=== PATIENT | female | born 1970 | race Caucasian/White ===

== ENCOUNTER 2023-11-16 08:19 | Outpatient (AMB) | payer OTHER, SELFPAY ==
--- NOTE | 2023-11-16 08:18 | A.OFFPC_ITS ---
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 Intake Note: New patient visit Drawer In Stitch Bonding Machine Required: No Allergies No Known Allergies Allergy (Verified 11/16/23 08:18) Medication List - Last Reconciled 11/16/23 by Liz Manning MD albuterol sulfate 90 mcg/actuation 2 puffs inhalation Q6H PRN estradiol transdermal progesterone micronized mg PO Pulmicort Flexhaler 180 mcg/actuation (budesonide) 1 inh inhalation DAILY NS Tobacco use date assessed: 11/16/23 Dental Screening Dental Screen Date: 11/16/23 Did you have a dental visit in the last 12 months?: Yes Did you have a dental problem in the last 6 months where you did not have access to dental care?: No Was dental information given to patient?: Patient has dentist HPI HPI Comments History of Present Illness Details The patient is a 53 year old female with a past medical history of melanoma presenting for annual exam Follows with [facility]. Sees once a year. History of melanoma. History of hand surgery with Dr Estevez. Colonoscopy 03/2023 Mammo 10/2022 Td Feb 2021? [facility] Medical History (Updated 11/16/23 @ 09:40 by Liz Manning MD) H/O mammogram Obesity, Class I, BMI 30-34.9 History of melanoma Surgical History (Updated 11/16/23 @ 08:20 by Cristal Land CMA) H/O melanoma excision Family History (Updated 11/16/23 @ 08:49 by Cristal Land CMA) Father HTN (hypertension) Hypercholesteremia Cardiovascular disease Pancreatic cancer Paternal Grandfather HTN (hypertension) Hypercholesteremia Cardiovascular disease Other Clotting disorder Social History Housing: House Patient Tobacco Use Status: Former Tobacco user Cigarette Packs Per Day: 0.5 Years Smoked: 5 e-Cigarette/Vaping Use: Never Used service: No Current occupational status: employed 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 1. Little interest or pleasure in doing things: not at all 2. Feeling down, depressed, or hopeless: not at all 3. Trouble falling or staying asleep, or sleeping too much: not at all 4. Feeling tired or having little energy: not at all 5. Poor appetite or overeating: not at all 6. Feeling bad about yourself - or that you are a failure or have let yourself or your family down: not at all 7. Trouble concentrating on things, such as reading the newspaper or watching television: not at all 8. Moving or speaking so slowly that other people could have noticed. Or the op posite - being so fidgety or restless that you have been moving around a lot more than usual: not at all 9. Thoughts that you would be better off or of hurting yourself in some way: not at all Total score: 0 Depression Screening Interpretation: Negative Depression Screening Done: Yes 90472 - PHQ-9 Billing: Yes Source: Developed by Drs. Blayne Diaz, Berenice Somers, Carlton Ramos and colleagues, with an educational flako from [employer]. Thrive Questionnaire Date Thrive assessed: 11/16/23 I am a: Patient What is your living situation today?: I have a steady place to live Within the past 12 months, did the food you bought not last and you didn't have the money to get more?: Never true Within the past 12 months, did you worry whether your food would run out before you got money to buy more?: Never true Do you have trouble paying for medicines?: No Do you have trouble getting transportation to medical appointments?: No Do you have trouble paying your heating and electricity bill?: No Do you have trouble taking care of your child, family member or friend?: No Do you have trouble with day-to-day activities such as bathing, preparing meals, shopping, managing finances, etc.?: No Are you currently unemployed and looking for a job?: No Are you interested in more education?: No Please select the resources that you would like help with: None Currently or been in a relationship where the following occur: no concerns reported THRIVE Score: 0 AUDIT C Alcohol Use Questionnaire (AUDIT-C) 1. How often do you have a drink containing alcohol?: 2-4 times a month 2. How many drinks containing alcohol do you have on a typical day when you are drinking?: 1 or 2 3. How often do you have six or more drinks on one occasion?: Never Total Score: 2 SONG-7 AMB Questionnaire SONG-7 Date SONG - 7 assessed: 11/16/23 Feeling nervous, anxious, or on edge: 0 = Not at all Not being able to stop or control worryin = Not at all Worrying too much about different things: 0 = Not at all Trouble relaxin = Several days Being so restless that it is hard to sit still: 0 = Not at all Becoming easily annoyed or irritable: 0 = Not at all Feeling afraid as if something awful might happen: 0 = Not at all Total SONG-7 score (0-4 normal; 5-9 mild; 10-14 moderate; 15-21 severe): 1 Source: Developed by Drs. Blayne Diaz, Berenice Somers, Carlton Ramos and colleagues, with an educational flako from [employer]. SONG-7 Assessment Billing SONG-7 Assessment Tool: SONG-7 Assessment 16048 ACT Questionnaire In the past 4 weeks, how much of the time did your asthma keep you from getting as much done at work, school or at home?: None of the time During the past 4 weeks, how often have you had shortness of breath?: 1-2 times a week During the past 4 weeks, how often did your asthma symptoms wake you up at night or earlier than usual in the morning?: Not at all During the past 4 weeks, how often have you had to use your rescue inhaler or nebulizer medication?: Not at all How would you rate your asthma control during the past 4 weeks?: Somewhat controlled ACT Interpretation: Positive Score: 22 Physical exam (Primary Care) Vital Signs: Last Vital Signs Temp 97.7 F 11/16/23 08:26 Pulse 93 11/16/23 08:26 Resp 14 11/16/23 08:26 BP 134/80 11/16/23 08:43 Pulse Ox 99 11/16/23 08:26 BMI result Body Mass Index 33.7 Tobacco/Smoking Status: Tobacco use Status Tobacco use date assessed 11/16/23 11/16/23 08:21 Patient Tobacco Use Status Former Tobacco user 11/16/23 08:29 e-Cigarette/Vaping Use Never Used 11/16/23 08:29 PHQ-9: PHQ-9 Score PHQ-9: Total score 0 11/16/23 08:52 Depression Screening Interpretation: Negative Thrive Assessment: Date of Thrive Assessment Date Thrive assessed 11/16/23 11/16/23 08:52 Currently or been in a relationship where the following occur: no concerns reported Assessment and Plan Assessment & Plan (1) Physical exam: Code(s): Z00.00 - Encounter for general adult medical examination without abnormal findings Plan: The patient was seen today for preventive annual exam. As part of this exam we assessed/discussed Screening for tobacco use and provide tobacco cessation interventions for those who use tobacco products. Screening for alcohol misuse Screening for women of childbearing age for intimate partner violence, and those who screen positive should be provided with or referred to intervention services. Screening for depression Screening for cervical cancer with Pap tests beginning at 21 years of age. Screening for breast cancer Screening for colon cancer (2) Degenerative disc disease, cervical: Comment: Referral to physiatry. EMG. xray ordered Code(s): M50.30 - Other cervical disc degeneration, unspecified cervical region (3) Cervical radiculopathy: Code(s): M54.12 - Radiculopathy, cervical region (4) History of melanoma: Comment: Continues annual follow up with dermatology Code(s): Z85.820 - Personal history of malignant melanoma of skin (5) Hand numbness: Code(s): R20.0 - Anesthesia of skin (6) Hyperlipidemia: Code(s): E78.5 - Hyperlipidemia, unspecified Qualifiers: Hyperlipidemia type: familial hypercholesterolemia Qualified Code(s): E78.01 - Familial hypercholesterolemia Orders: Orders Comprehensive Met. Panel Today E78.5 - Hyperlipidemia, unspecified, R20.0 - Anesthesia of skin, Z85.820 - Personal history of malignant melanoma of skin TSH reflex Free T4 Today E78.5 - Hyperlipidemia, unspecified, R20.0 - Anesthesia of skin, Z85.820 - Personal history of malignant melanoma of skin XR cervical spine 2V Today M50.30 - Other cervical disc degeneration, unspecified cervical region, M54.12 - Radiculopathy, cervical region NE electromyogram (EMG) Today M50.30 - Other cervical disc degeneration, unspecified cervical region, M54.12 - Radiculopathy, cervical region Complete Blood Count Auto Diff Today E78.5 - Hyperlipidemia, unspecified, R20.0 - Anesthesia of skin, Z13.0 - Encounter for screening for diseases of the blood and blood-forming organs and certain disorders involving the immune mechanism, Z85.820 - Personal history of malignant melanoma of skin Lipid Panel Today E78.5 - Hyperlipidemia, unspecified, R20.0 - Anesthesia of skin, Z85.820 - Personal history of malignant melanoma of skin ABO RH Type Today E78.5 - Hyperlipidemia, unspecified, R20.0 - Anesthesia of skin, Z85.820 - Personal history of malignant melanoma of skin Hemoglobin A1c Today E78.5 - Hyperlipidemia, unspecified, R20.0 - Anesthesia of skin, Z85.820 - Personal history of malignant melanoma of skin Referrals Physiatry Referral M50.30 - Other cervical disc degeneration, unspecified cervical region, M54.12 - Radiculopathy, cervical region, R20.0 - Anesthesia of skin Medications: New Pulmicort Flexhaler 180 mcg/actuation (budesonide) 1 inh inhalation DAILY 1 ea 1RF NS albuterol sulfate 90 mcg/actuation 2 puffs inhalation Q6H PRN 8.5 grams 1RF shortness of breath or wheezing Coding Level of Care Code New Pt Prev Care 40-64y(08844) Diagnoses Physical exam Z00.00 Degenerative disc disease, cervical M50.30 Cervical radiculopathy M54.12 History of melanoma Z85.820 Hand numbness R20.0 Familial hypercholesterolemia E78.01 Hyperlipidemia type: familial hypercholesterolemia Additional Codes SONG-7 Assessment Billing - SONG-7 Assessment Tool: SONG-7 Assessment [id number] ([id number])
[2023-11-16 08:26] VITALS: BP 144/82; PULSE 93; RESP 14; TEMP 36.5; O2SAT 99; BMI 33.7
[2023-11-16 08:43] VITALS: BP 134/80
== END 2023-11-16 09:16 | disposition home or self-care (01) ==
PROVIDERS: Visit Provider Internal Medicine
DX: Z00.00 Encounter for general adult medical examination without abnormal findings (principal); M50.30 Other cervical disc degeneration, unspecified cervical region; M54.12 Radiculopathy, cervical region; Z85.820 Personal history of malignant melanoma of skin; R20.0 Anesthesia of skin; E78.01 Familial hypercholesterolemia
CPT/HCPCS: 99386

== ENCOUNTER 2023-11-16 09:18 | Outpatient (REF) | payer OTHER, SELFPAY ==
[2023-11-16 11:27] LABS: MANUAL DIFF FLAG NO
[2023-11-16 11:37] LABS: Basophils Absolute Auto 0.1 X10*3/uL (0.0-0.2); Basophils Percent Auto 0.8 % (0-2); Eosinophils Absolute Auto 0.2 X10*3/uL (0.0-0.4); Eosinophils Percent Auto 2.8 % (0-4); Hematocrit 42.6 % (37.0-47.0); Hemoglobin 14.2 g/dl (12.0-16.0); Imm Gran Abs Auto 0.02 X10*3/uL (0.00-0.03); Imm Gran Pct Auto 0.3 % (0.0-0.4); Lymphocytes Percent Auto 30.5 % (20-40); Mean Corpuscular HGB Conc 33.3 g/dl (31.0-35.0); Mean Corpuscular Hemoglobin 32.3 pg (27.0-33.0); Mean Platelet Volume 11.7 fL (9.4-12.3); Monocytes Absolute Auto 0.4 X10*3/uL (0.1-1.2); Monocytes Percent Auto 6.5 % (2-11); Neutrophils Absolute Auto 3.8 x10*3/uL (2.0-8.3); Neutrophils Percent Auto 59.1 % (45-73); Platelet Count 305 X10*3/uL (160-400); Red Blood Count 4.39 X10*6/uL (4.20-5.50); Red Cell Distribution Width 12.5 % (11.0-16.0); White Blood Count 6.5 X10*3/uL (4.8-10.8)
[2023-11-16 11:45] LABS: Estimated Average Glucose 108 mg/dL; Hemoglobin A1c % 5.4 % (<6.0)
[2023-11-16 11:57] LABS: Alanine Aminotransferase 28 U/L (0-31); Albumin Level 4.3 g/dL (3.5-5.0); Alkaline Phosphatase 106 U/L (39-117); Anion Gap 12 (12-20); Aspartate Amino Transferase 25 U/L (5-31); Bilirubin Total 0.7 mg/dL (0.0-1.0); Blood Urea Nitrogen 13 mg/dL (9-16); Calcium 9.4 mg/dL (8.4-10.2); Carbon Dioxide 28 mmol/L (22-29); Chloride 106 mmol/L (96-108); Cholesterol 228 mg/dL (<200); Estimated Glomerular Filt Rate > 60; Glucose Random 112 mg/dL (60-115); HDL Cholesterol 89 mg/dL (>40); LDL Cholesterol Calculated 123 mg/dL (<100); Potassium 4.1 mmol/L (3.3-5.1); Sodium 142 mmol/L (135-145); Total Protein 7.4 g/dL (6.5-8.0); Triglycerides 84 mg/dL (<150)
[2023-11-16 12:15] LABS: TSH reflex Free T4 2.47 uIU/mL (0.32-4.0)
== END 2023-11-16 09:19 | disposition home or self-care (01) ==
LOC: HO.WFDLDS 09:18
PROVIDERS: Visit Provider Internal Medicine
DX: Z13.0 Encounter for screening for diseases of the blood and blood-forming organs and certain disorders involving the immune mechanism (principal); R20.0 Anesthesia of skin; E78.5 Hyperlipidemia, unspecified; Z85.820 Personal history of malignant melanoma of skin
CPT/HCPCS: 36415; 80053; 80061; 83036; 84443; 85025; 86900; 86901

== ENCOUNTER 2023-11-21 15:44 | Outpatient (REF) | payer OTHER, SELFPAY ==
--- NOTE | ~2023-11-21 | XR_ITS ---
EXAMINATION: XR CERVICAL SPINE CLINICAL INFORMATION: Cervical disc degeneration, numbness, tingling right hand, neck pain and stiffness. COMPARISON: None available. TECHNIQUE: 2 views of the cervical spine. FINDINGS: Slight reversal of the normal cervical lordosis. Degenerative changes between the anterior arch of C1 and the odontoid. Minimal retrolisthesis of C4 on C5, and of C5 on C6. Multilevel cervical spondylosis with loss of disc space height at moderate at C4-C5, [id number] at C5-C6 and [id number] at C6-C7. Poor visualization of C6-C7 due to overlying soft tissues. Clip overlies the anterior aspect of the lower cervical spine on the lateral view, but is not imaged on the frontal view and correlation with clinical exam recommended to determine further management. XR/XR cervical spine 2V IMPRESSION: Multilevel cervical spondylosis most notable at C4-C7.
== END 2023-11-21 15:45 | disposition home or self-care (01) ==
LOC: HO.XRAY 15:44
PROVIDERS: PCP Internal Medicine; Visit Provider Internal Medicine
DX: M50.30 Other cervical disc degeneration, unspecified cervical region (principal); M54.12 Radiculopathy, cervical region
CPT/HCPCS: 72040

== ENCOUNTER 2023-11-29 13:56 | Outpatient (REF) | payer OTHER, SELFPAY ==
--- NOTE | 2023-11-29 | EMG_ITS ---
Chief complaint: Noticed right arm numbness when she bends forward. Has also nighttime symptoms. Reason for referral: Evaluate for cervical radiculopathy Referred by: Dr. Liz Manning Procedure done: Right upper extremity NCS/EMG Precautions and/or limitations: None The limb temperature was monitored continuously and remained between 32-36 degrees C during the performance of the NCS. Nerve Conduction Studies Anti Sensory Summary Table ?Stim Site NR Onset (ms) Norm Onset (ms) Peak (ms) Norm Peak (ms) O-P Amp (?V) Norm O-P Amp Site1 Site2 Delta-0 (ms) Dist (cm) Naveed (m/s) Norm Naveed (m/s) Right Median Anti Sensory (2nd Digit) Wrist ? 2.4 3.3 <3.6 54.9 >10 Wrist 2nd Digit 2.4 14.0 58 Right Radial Anti Sensory (Thumb) Forearm ? 1.5 2.0 <3.1 35.0 Forearm Thumb 1.5 0.0 Right Ulnar Anti Sensory (5th Digit) Wrist ? 2.3 3.2 <3.7 58.1 >15.0 Wrist 5th Digit 2.3 14.0 61 Motor Summary Table ?Stim Site NR Onset (ms) Norm Onset (ms) O-P Amp (mV) Norm O-P Amp iAmp (mV) Amp (1st) (%) Site1 Site2 Delta-0 (ms) Dist (cm) Naveed (m/s) Norm Naveed (m/s) Right Median Motor (Abd Poll Brev) Wrist ? 3.1 <3.9 10.5 >4.5 12.8 100.0 Elbow Wrist 3.6 18.5 51 >45 Elbow ? 6.7 9.4 12.0 89.5 Right Ulnar Motor (Abd Dig Minimi) Wrist ? 2.7 <3.0 8.5 >5 10.5 100.0 B Elbow Wrist 2.9 18.0 62 >45 B Elbow ? 5.6 8.7 10.7 102.4 A Elbow B Elbow 1.5 10.0 67 >45 A Elbow ? 7.1 8.6 10.6 101.2 EMG ?Side Muscle Nerve Root Ins Act Fibs Psw Amp Dur Poly Recrt Int Pat Comment Right 1stDorInt Ulnar C8-T1 Nml Nml Nml Nml Nml 0 Nml Complete Right FlexCarRad Median C6-7 Nml Nml Nml Nml Nml 0 Nml Complete Right Biceps Musculocut C5-6 Nml Nml Nml Nml Nml 0 Nml Complete Right Triceps Radial C6-7-8 Nml Nml Nml Nml Nml 0 Nml Complete Right Deltoid Axillary C5-6 Nml Nml Nml Nml Nml 0 Nml Complete FINDINGS: All motor and sensory nerves tested showed normal latencies, amplitudes and conduction velocities. Concentric needle EMG was performed in selected muscles of the right upper extremity. Study did not reveal signs of electric abnormalities as shown in the table below. IMPRESSION: 1. This is a normal study. 2. There is no electrodiagnostic evidence for median neuropathy, ulnar neuropathy, brachial plexopathy, or cervical radiculopathy. Thank you for your kind referral. Magnolia Brooke MD, CARLI Board Certified, [place] [employer] and Rehabilitation (ABPMR) Board Certified, [place] Board [employer] Electrodiagnostic [employer] (ABEM) [place] [id number] [facility]
== END 2023-11-29 13:57 | disposition home or self-care (01) ==
LOC: HO.NEURO 13:56
PROVIDERS: PCP Internal Medicine; Visit Provider Internal Medicine
DX: M54.12 Radiculopathy, cervical region (principal); M50.30 Other cervical disc degeneration, unspecified cervical region
CPT/HCPCS: 95886; 95909

== ENCOUNTER → 2023-11-29 13:58 | Outpatient (BNV) | payer OTHER, SELFPAY | PROVIDERS: PCP Internal Medicine; Visit Provider Physical Medicine & Rehabilitation | DX: R20.2 Paresthesia of skin (principal); M54.12 Radiculopathy, cervical region | CPT/HCPCS: 95886; 95909 ==

== ENCOUNTER 2024-01-09 10:49 | Outpatient (AMB) | payer OTHER, SELFPAY ==
--- NOTE | 2024-01-09 10:53 | A.OFFVIS_ITS ---
Intake Visit Reasons: OV- EMG f/u right hand, neck pain Intake Note: Tessie is a 53 year old female who presents to the office today for EMG f/u right hand, neck pain. EMG done 11/29/23. Patient states that she has had ongoing neck pain and pain radiating down the right arm for about 3 years now. Denies any injury. She has had a few months of formal physical therapy, and continues home therapy. The whole arm goes numb with pins and needle when bending forward which resolves when standing back up. Allergies No Known Allergies Allergy (Verified 11/16/23 08:18) HPI Comments Details: I saw the patient for EMG, ordered by her PCP Dr. Manning. EMG was negative for Carpal Tunnel Syndrome or any acute radiculopathy. Report below. She's been having right sided neck pain and arm pain for at least 3 years. Pain comes from shoulder and upper arm. Worse with looking down or bending forward. Whole arm would get numb when she bends forward. Good shoulder ROM and no weakness. MRI 3 years ago, at [facility], told disc compression. Symptoms worse since then. [facility] Medical History (Updated 11/16/23 @ 09:40 by Liz Manning MD) H/O mammogram Obesity, Class I, BMI 30-34.9 History of melanoma Surgical History (Updated 11/16/23 @ 08:20 by Cristal Land CMA) H/O melanoma excision Family History (Updated 11/16/23 @ 08:49 by Cristal Land CMA) Father HTN (hypertension) Hypercholesteremia Cardiovascular disease Pancreatic cancer Paternal Grandfather HTN (hypertension) Hypercholesteremia Cardiovascular disease Other Clotting disorder Social History Housing: House Patient Tobacco Use Status: Former Tobacco user Cigarette Packs Per Day: 0.5 Years Smoked: 5 e-Cigarette/Vaping Use: Never Used service: No Current occupational status: employed 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 Patient was appropriately conversant and oriented. Good historian. MSK: Inspection reveals appropriate head and neck positioning. No pain with palpation over the neck musculature. Cervical ROM was full. Spurling's sign positive cross findings, left Spurling sign caused radiation to right arm. No scapular winging. Bilateral shoulder, elbow and wrist ROM WNL. No ligamentous laxity or crepitance. No increased effusion. Victor sign negative. Empty can sign negative. Speed's test negative. Negative carpal compression. Negative Tinel sign. Strength is 5/5 in all muscle groups tested. No increased tone noted. Neurological: Neurologic examination of the upper and lower extremities was nonfocal with intact sensation, muscle stretch reflexes and without focal motor deficits . Jackson?s negative bilaterally. Babinski was down going bilaterally. Clonus was negative. Gait is non-antalgic without loss of balance. Results Reviewed Results Reviewed: I independently reviewed the results of the following: Loss of lordosis and question disc space loss on cervical spine x-ray. Showed films to patient. Ordering Physician: Liz Manning MD Date of Service: 11/21/23 Procedure(s): XR cervical spine 2V Accession Number(s): [id number] cc: Liz Manning MD~ EXAMINATION: XR CERVICAL SPINE CLINICAL INFORMATION: Cervical disc degeneration, numbness, tingling right hand, neck pain and stiffness. COMPARISON: None available. TECHNIQUE: 2 views of the cervical spine. FINDINGS: Slight reversal of the normal cervical lordosis. Degenerative changes between the anterior arch of C1 and the odontoid. Minimal retrolisthesis of C4 on C5, and of C5 on C6. Multilevel cervical spondylosis with loss of disc space height at moderate at C4-C5, iplzauql-qb-paqiau at C5-C6 and xkltqmdm-et-fhcnyy at C6-C7. Poor visualization of C6-C7 due to overlying soft tissues. Clip overlies the anterior aspect of the lower cervical spine on the lateral view, but is not imaged on the frontal view and correlation with clinical exam recommended to determine further management. XR/XR cervical spine 2V IMPRESSION: Multilevel cervical spondylosis most notable at C4-C7. EMG done by me 11/29/23 IMPRESSION: 1. This is a normal study. 2. There is no electrodiagnostic evidence for median neuropathy, ulnar neuropathy, brachial plexopathy, or cervical radiculopathy. I reviewed records from the following: PCP Assessment & Plan Assessment & Plan (1) Degenerative disc disease, cervical: Comment: Referral to physiatry. EMG. xray ordered Code(s): M50.30 - Other cervical disc degeneration, unspecified cervical region Category: Medical (2) Cervical radiculopathy: Code(s): M54.12 - Radiculopathy, cervical region Category: Medical Plan Symptoms and exam are suggestive of cervical radiculitis. No signs of ongoing myelopathy. No neurological findings. She has been told in the past have ce rvical disc herniation, cervical x-ray shows loss of disc spaces, and her symptoms have been worsening for the last 3 years. Patient had undergone adequate conservative management including PT without improvement of condition. It would be reasonable to obtain further imaging such as MRI. An MRI would help rule out any serious condition, guide treatment and assess prognosis for recovery. Specifically ruling out right C5-6 disc herniation, foraminal now narrowing or nerve impingement. We discussed that depending on results, I may refer her to pain management for cervical intervention/injections or refer to neuro spine. Assessment and plan discussed with patient, and patient was agreeable. All questions were answered thoroughly. We will call patient after MRI. Magnolia Brooke MD, CARLI Board Certified, [place] [employer] and Rehabilitation (ABPMR) Board Certified, [place] [employer] Electro[employer]ostic [employer] (ABEM) Orders: Orders MR cervical spine wo con Today M50.30 - Other cervical disc degeneration, unspecified cervical region, M54.12 - Radiculopathy, cervical region Coding Level of Care Code Est Pt Level 4 (11309) Diagnoses Degenerative disc disease, cervical M50.30 Cervical radiculopathy M54.12
== END 2024-01-09 11:10 | disposition home or self-care (01) ==
PROVIDERS: PCP Internal Medicine; Visit Provider Physical Medicine & Rehabilitation
DX: M50.30 Other cervical disc degeneration, unspecified cervical region (principal); M54.12 Radiculopathy, cervical region
CPT/HCPCS: 99213

== ENCOUNTER → 2024-01-09 10:49 | Outpatient (BNVA) | payer OTHER, SELFPAY | PROVIDERS: PCP Internal Medicine; Visit Provider Physical Medicine & Rehabilitation ==

== ENCOUNTER 2024-03-10 07:15 | Outpatient (REF) | payer OTHER, SELFPAY ==
--- NOTE | ~2024-03-10 | MR_ITS ---
EXAMINATION: MR CERVICAL SPINE WITHOUT CONTRAST CLINICAL INFORMATION: Evaluate for right C5-6 foraminal stenosis or disc herniation COMPARISON: None available. TECHNIQUE: MRI of the cervical spine was obtained using routine sequences without contrast. FINDINGS: The imaged posterior fossa is unremarkable. Reversal of the normal cervical lordosis. Mild retrolisthesis at C4-5 and C5-6. Grade 1 anterolisthesis at C2-3 and C3-4. No acute bone marrow abnormality. Mildly heterogeneous bone marrow signal is likely degenerative. The visualized spinal cord is normal in caliber. No abnormal cord signal. C2-3: Bilateral facet arthrosis. No significant spinal canal nor foraminal narrowing. C3-4: Disc osteophyte complex, bilateral uncovertebral hypertrophy, and bilateral facet arthrosis. No significant spinal canal stenosis. Moderate left and mild right neural foraminal narrowing. C4-5: Disc osteophyte complex, bilateral uncovertebral hypertrophy, and bilateral facet arthrosis. Severe right and moderate to severe left neural foraminal narrowing. No central spinal canal stenosis. C5-6: Disc osteophyte complex, bilateral uncovertebral hypertrophy, and bilateral facet arthrosis. Moderate to severe right and mild left neural foraminal narrowing. No significant spinal canal or neural foraminal narrowing. C6-7: Disc osteophyte complex and bilateral uncovertebral hypertrophy. Severe right and moderate left neural foraminal narrowing. No significant spinal canal stenosis. C7-T1: No significant spinal canal or neural foraminal narrowing. The paravertebral soft tissues are unremarkable. The imaged lung apices are clear. MR/MR cervical spine wo con IMPRESSION: Multilevel degenerative changes of the cervical spine without significant spinal canal stenosis. Neural foraminal narrowing is worst and severe on the right at C4-C5 and C6-C7. Electronically signed by: Raúl Jones MD 04/11/2024 06:07 PM EDT
== END 2024-03-10 07:16 | disposition home or self-care (01) ==
LOC: HO.MRI 07:15
PROVIDERS: PCP Internal Medicine; Visit Provider Physical Medicine & Rehabilitation
DX: M54.12 Radiculopathy, cervical region (principal); M50.30 Other cervical disc degeneration, unspecified cervical region
CPT/HCPCS: 72141

== ENCOUNTER 2024-03-14 13:51 | Outpatient (AMB) | payer OTHER, SELFPAY ==
--- NOTE | 2024-03-14 14:04 | MHC.PC.OV ---
Vital Signs 03/14/24 14:05 BP 140/70 H Blood Pressure Location Rt brachial Position Sitting Respiration 12 Pulse 78 Pulse Source Pulse Oximeter Pulse Oximetry (%) 98 Oxygen Delivery Method Room Air Intake Visit Reasons: R foot pain Intake Note: Patient reports she was running through a trail and she felt sharp pain in her heal, patient states she kept running and the pain worsened by radiating through the side of her foot. Patient reports this was 3 weeks ago. 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 She was running through a trail and she felt sharp pain in her heal, patient states she kept running and the pain worsened by radiating through the medial side of her right foot at the edge of the heel. She has been trying to ice and stretch and elevate when possible Follows with [facility]. Sees once a year. History of melanoma. History of hand surgery with Dr Estevez. Colonoscopy 03/2023 Mammo 10/2022 Td Feb 2021? Dr Bar ROS see HPI PHYSICAL EXAM: GENERAL: Alert and oriented x 3. NAD EYES: EOMI. Anicteric. HENT: Moist mucous membranes. No scleral icterus. No cervical lymphadenopathy. LUNGS: Clear to auscultation bilaterally. CARDIOVASCULAR: Regular rate and rhythm. No murmur. No JVD. ABDOMEN: Soft, non-tender +bs EXTREMITIES: Tenderness to palptation without swelling or warmth at at the medial base of the calcaneus/ SKIN: No rashes or lesions. Warm. NEUROLOGIC: No focal neurological deficits. CN II-XII grossly intact PSYCHIATRIC: Cooperative. Appropriate mood and affect [facility] Medical History (Updated 03/14/24 @ 14:53 by Liz Manning MD) H/O mammogram Obesity, Class I, BMI 30-34.9 History of melanoma Surgical History (Updated 11/16/23 @ 08:20 by Cristal Ladn CMA) H/O melanoma excision Family History (Updated 11/16/23 @ 08:49 by Cristal Land CMA) Father HTN (hypertension) Hypercholesteremia Cardiovascular disease Pancreatic cancer Paternal Grandfather HTN (hypertension) Hypercholesteremia Cardiovascular disease Other Clotting disorder Social History Housing: House Patient Tobacco Use Status: Former Tobacco user Cigarette Packs Per Day: 0.5 Years Smoked: 5 e-Cigarette/Vaping Use: Never Used service: No Current occupational status: employed 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 1. Little interest or pleasure in doing things: not at all 2. Feeling down, depressed, or hopeless: not at all 3. Trouble falling or staying asleep, or sleeping too much: not at all 4. Feeling tired or having little energy: not at all 5. Poor appetite or overeating: not at all 6. Feeling bad about yourself - or that you are a failure or have let yourself or your family down: not at all 7. Trouble concentrating on things, such as reading the newspaper or watching television: not at all 8. Moving or speaking so slowly that other people could have noticed. Or the opposite - being so fidgety or restless that you have been moving around a lot more than usual: not at all 9. Thoughts that you would be better off or of hurting yourself in some way: not at all Total score: 0 Depression Screening Interpretation: Negative Depression Screening Done: Yes 34229 - PHQ-9 Billing: Yes Source: Developed by Drs. Blayne Diaz, Berenice Somers, Carlton Ramos and colleagues, with an educational flako from [employer]. Thrive Questionnaire Date Thrive assessed: 03/12/24 I am a: Patient What is your living situation today?: I have a steady place to live Within the past 12 months, did the food you bought not last and you didn't have the money to get more?: Never true Within the past 12 months, did you worry whether your food would run out before you got money to buy more?: Never true Do you have trouble paying for medicines?: No Do you have trouble getting transportation to medical appointments?: No Do you have trouble paying your heating and electricity bill?: No Do you have trouble taking care of your child, family member or friend?: No Do you have trouble with day-to-day activities such as bathing, preparing meals, shopping, managing finances, etc.?: No Are you currently unemployed and looking for a job?: No Are you interested in more education?: No Please select the resources that you would like help with: None Currently or been in a relationship where the following occur: No concerns reported THRIVE Score: 0 AUDIT C Alcohol Use Questionnaire (AUDIT-C) 1. How often do you have a drink containing alcohol?: Monthly or less 2. How many drinks containing alcohol do you have on a typical day when you are drinking?: 1 or 2 3. How often do you have six or more drinks on one occasion?: Never Total Score: 1 SONG-7 AMB Questionnaire SONG-7 Date SONG - 7 assessed: 03/14/24 Feeling nervous, anxious, or on edge: 0 = Not at all Not being able to stop or control worryin = Not at all Worrying too much about different things: 0 = Not at all Trouble relaxin = Not at all Being so restless that it is hard to sit still: 0 = Not at all Becoming easily annoyed or irritable: 0 = Not at all Feeling afraid as if something awful might happen: 0 = Not at all Total SONG-7 score (0-4 normal; 5-9 mild; 10-14 moderate; 15-21 severe): 0 Source: Developed by Drs. Blayne Diaz, Berenice Somers, Carlton Ramos and colleagues, with an educational flako from [employer]. SONG-7 Assessment Billing SONG-7 Assessment Tool: SONG-7 Assessment 89942 Physical exam (Primary Care) Vital Signs: Last Vital Signs Pulse 78 03/14/24 14:05 Resp 12 03/14/24 14:05 BP 140/70 H 03/14/24 14:05 Pulse Ox 98 03/14/24 14:05 Oxygen Delivery Method Room Air 03/14/24 14:05 Tobacco/Smoking Status: Tobacco use Status Tobacco use date assessed 11/16/23 03/14/24 14:05 Patient Tobacco Use Status Former Tobacco user 03/14/24 14:05 e-Cigarette/Vaping Use Never Used 03/14/24 14:05 PHQ-9: PHQ-9 Score PHQ-9: Total score 0 03/18/24 12:47 Depression Screening Interpretation: Negative Thrive Assessment: Date of Thrive Assessment Date Thrive assessed 03/12/24 03/14/24 14:05 Currently or been in a relationship where the following occur: No concerns reported Assessment and Plan Assessment & Plan (1) Right foot pain: Code(s): M79.671 - Pain in right foot Plan: Referal to ortho-foot prednisone and topicals ordered. Advised to ice, tape and elevate when possible Orders: Referrals Orthopedics Referral M79.671 - Pain in right foot Medications: New prednisone 40 mg (2 x 20 mg) PO DAILY 10 tabs 0RF 5 days lidocaine-prilocaine 2.5-2.5 % 1 appl topical ONCE 30 grams 0RF diclofenac sodium 1% (Arthritis Pain (diclofenac)) apply to single knee, ankle, foot; for foot includes sole/toes/top of foot 4 grams topical QID 100 grams 0RF Coding Level of Care Code Est Pt Level 4 (48160) Diagnoses Right foot pain M79.671 Additional Codes SONG-7 Assessment Billing - SONG-7 Assessment Tool: SONG-7 Assessment 12259 ([id number])
[2024-03-14 14:05] VITALS: BP 140/70; PULSE 78; RESP 12; O2SAT 98
== END 2024-03-14 16:24 | disposition home or self-care (01) ==
PROVIDERS: PCP Internal Medicine; Visit Provider Internal Medicine
DX: M79.671 Pain in right foot (principal)

== ENCOUNTER → 2024-03-14 13:51 | Outpatient (BNVA) | payer OTHER, SELFPAY | PROVIDERS: PCP Internal Medicine; Visit Provider Internal Medicine | DX: M79.671 Pain in right foot (principal) | CPT/HCPCS: 96127 ==

== ENCOUNTER 2024-05-08 09:02 | Outpatient (AMB) | payer OTHER, SELFPAY ==
--- NOTE | 2024-05-08 09:31 | A.OFFVIS_ITS ---
Vital Signs 05/08/24 09:32 Height 5 ft 3.03 in Weight 190 lb 8 oz BMI 33.7 Intake Visit Reasons: MRI review of cervical spine Intake Note: Tessie is a 54 year old female who presents today for an MRI review of her cervical spine. MRI done on 03/10/2024. Allergies No Known Allergies Allergy (Verified 05/08/24 09:33) HPI Comments Details: I saw the patient for EMG, ordered by her PCP Dr. Manning. EMG was negative for Carpal Tunnel Syndrome or any acute radiculopathy. Report below. She's been having right sided neck pain and arm pain for at least 3 years. Pain comes from shoulder and upper arm. Worse with looking down or bending forward. Whole arm would get numb when she bends forward. Good shoulder ROM and no weakness. MRI 3 years ago, at [facility], told disc compression. Symptoms worse since then. Last formal PT 3 years ago, but has been doing the exercises taught by PT. We repeated MRI, here to discuss. Nothing new since last visit. Same symptoms. She confirms that most of her pain is right-sided with numbness on right hand/arm. [facility] Medical History (Updated 05/08/24 @ 09:57 by Magnolia Brooke MD) H/O mammogram Obesity, Class I, BMI 30-34.9 History of melanoma Surgical History (Updated 11/16/23 @ 08:20 by Cristal Land CMA) H/O melanoma excision Family History (Updated 11/16/23 @ 08:49 by Cristal Land CMA) Father HTN (hypertension) Hypercholesteremia Cardiovascular disease Pancreatic cancer Paternal Grandfather HTN (hypertension) Hypercholesteremia Cardiovascular disease Other Clotting disorder Social History Housing: House Patient Tobacco Use Status: Former Tobacco user Cigarette Packs Per Day: 0.5 Years Smoked: 5 e-Cigarette/Vaping Use: Never Used service: No Current occupational status: employed 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 Patient was appropriately conversant and oriented. Good historian. MSK: Inspection reveals appropriate head and neck positioning. Cervical ROM was full. Spurling's sign positive cross findings, left Spurling sign caused radiation to right arm. No scapular winging. Strength is 5/5 in all muscle groups tested. No increased tone noted. Neurological: Neurologic examination of the upper and lower extremities was nonfocal with intact sensation, muscle stretch reflexes and without focal motor deficits . Jackson?s negative bilaterally. Babinski was down going bilaterally. Clonus was negative. Gait is non-antalgic without loss of balance. Results Reviewed Results Reviewed: Ordering Physician: Magnolia Medley Date of Service: 03/10/24 Procedure(s): MR cervical spine wo con Accession Number(s): [id number] cc: Liz Manning MD; Magnolia Medley~ EXAMINATION: MR CERVICAL SPINE WITHOUT CONTRAST CLINICAL INFORMATION: Evaluate for right C5-6 foraminal stenosis or disc herniation COMPARISON: None available. TECHNIQUE: MRI of the cervical spine was obtained using routine sequences without contrast. FINDINGS: The imaged posterior fossa is unremarkable. Reversal of the normal cervical lordosis. Mild retrolisthesis at C4-5 and C5-6. Grade 1 anterolisthesis at C2-3 and C3-4. No acute bone marrow abnormality. Mildly heterogeneous bone marrow signal is likely degenerative. The visualized spinal cord is normal in caliber. No abnormal cord signal. C2-3: Bilateral facet arthrosis. No significant spinal canal nor foraminal narrowing. C3-4: Disc osteophyte complex, bilateral uncovertebral hypertrophy, and bilateral facet arthrosis. No significant spinal canal stenosis. Moderate left and mild right neural foraminal narrowing. C4-5: Disc osteophyte complex, bilateral uncovertebral hypertrophy, and bilateral facet arthrosis. Severe right and moderate to severe left neural foraminal narrowing. No central spinal canal stenosis. C5-6: Disc osteophyte complex, bilateral uncovertebral hypertrophy, and bilateral facet arthrosis. Moderate to severe right and mild left neural foraminal narrowing. No significant spinal canal or neural foraminal narrowing. C6-7: Disc osteophyte complex and bilateral uncovertebral hypertrophy. Severe right and moderate left neural foraminal narrowing. No significant spinal canal stenosis. C7-T1: No significant spinal canal or neural foraminal narrowing. The paravertebral soft tissues are unremarkable. The imaged lung apices are clear. MR/MR cervical spine wo con IMPRESSION: Multilevel degenerative changes of the cervical spine without significant spinal canal stenosis. Neural foraminal narrowing is worst and severe on the right at C4-C5 and C6-C7. Electronically signed by: Raúl Jones MD 04/11/2024 06:07 PM EDT RP Ordering Physician: Liz Manning MD Date of Service: 11/21/23 Procedure(s): XR cervical spine 2V Accession Number(s): [id number] cc: Liz Manning MD~ EXAMINATION: XR CERVICAL SPINE CLINICAL INFORMATION: Cervical disc degeneration, numbness, tingling right hand, neck pain and stiffness. COMPARISON: None available. TECHNIQUE: 2 views of the cervical spine. FINDINGS: Slight reversal of the normal cervical lordosis. Degenerative changes between the anterior arch of C1 and the odontoid. Minimal retrolisthesis of C4 on C5, and of C5 on C6. Multilevel cervical spondylosis with loss of disc space height at moderate at C4-C5, [id number] at C5-C6 and [id number] at C6-C7. Poor visualization of C6-C7 due to overlying soft tissues. Clip overlies the anterior aspect of the lower cervical spine on the lateral view, but is not imaged on the frontal view and correlation with clinical exam recommended to determine further management. XR/XR cervical spine 2V IMPRESSION: Multilevel cervical spondylosis most notable at C4-C7. Assessment & Plan Assessment & Plan (1) Cervical radiculopathy: Code(s): M54.12 - Radiculopathy, cervical region Category: Medical (2) Cervical disc herniation: Code(s): M50.20 - Other cervical disc displacement, unspecified cervical region Category: Medical (3) Cervical spondylosis: Code(s): M47.812 - Spondylosis without myelopathy or radiculopathy, cervical region Category: Medical Plan We looked at MRI images together. We saw that there is foraminal stenosis right C6-7 and C5-6, which may explain her symptoms. She does not have any myelopathic or neurologic deficits on exam today. We talked about different treatment options including physical therapy, injections, referral to Neurosurgery. In the end we agreed that we should get surgical opinion from neuro surgery. Referral placed. Assessment and plan discussed with patient, and patient was agreeable. All questions were answered thoroughly. Magnolia Brooke MD, CARLI Board Certified, [place] Board of [employer] and Rehabilitation (ABPMR) Board Certified, [place] Board [employer] Electrodiagnostic Medicine (ABEM) Orders: Referrals Neurosurgery Referral M47.812 - Spondylosis without myelopathy or radiculopathy, cervical region, M50.20 - Other cervical disc displacement, unspecified cervical region, M54.12 - Radiculopathy, cervical region Coding Level of Care Code Est Pt Level 4 (45931) Diagnoses Cervical radiculopathy M54.12 Cervical disc herniation M50.20 Cervical spondylosis M47.812
[2024-05-08 09:32] VITALS: BMI 33.7
== END 2024-05-08 09:59 | disposition home or self-care (01) ==
PROVIDERS: PCP Internal Medicine; Visit Provider Physical Medicine & Rehabilitation
DX: M54.12 Radiculopathy, cervical region (principal); M50.20 Other cervical disc displacement, unspecified cervical region; M47.812 Spondylosis without myelopathy or radiculopathy, cervical region
CPT/HCPCS: 99213

== ENCOUNTER 2024-05-12 13:46 | Outpatient (AMB) | payer OTHER, SELFPAY ==
--- NOTE | 2024-05-12 13:52 | HO.SPINEOV ---
Vital Signs 05/12/24 13:56 Height 5 ft 3 in Weight 190 lb BMI 33.7 Intake Visit Reasons: right sided neck pain, numbness Intake Note: Ms. Feliz is here today c/o right sided neck pain and numbness. Pool Hand Required: No Allergies No Known Allergies Allergy (Verified 05/12/24 13:56) Physical Exam Vital Signs: BMI result Body Mass Index 33.7 Assessment & Plan Assessment & Plan (1) Cervical radiculopathy: Code(s): M54.12 - Radiculopathy, cervical region Category: Medical Plan Dear Dr Galindo Martel, Thank you for referring Mrs Feliz to our office today. She is a very nice 54-year-old female presents to the office today for evaluation tingling and numbness has been going down her right arm now for about 3 years. It has been getting steadily worse over time. There is a component of neck discomfort if she has been over active, but in general neck pain is in a major factor in her quality of life. The symptoms are uncomfortable in the sense that it is an awkward sensation but she does not have any pain going down the arm. She has not lost any function of her arm. She remains relatively active. The numbness and tingling will run from the top of her shoulder down into her arm and hand, specifically her thumb and index finger. She underwent physical therapy a few years back without any significant relief. Outside of that she just been trying to do activity modifications to adjust to the symptoms. She can move her head and make it go away or improve. 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 Social hx: She has not smoke, occasionally uses alcohol, no marijuana or recreational drugs Medications: Hormone replacement Allergies: None Physical exam: She is awake alert oriented no acute distress, she has full strength of bilateral upper extremities. She has a slightly reduced reflexes in the right biceps. No Jackson's sign. Imaging review: Cervical MRI done at [facility] shows multilevel degenerative disc disease with foraminal stenosis on the right at C4-5, C5-6 and C6-7. Although the radiologist reports it is most severe at C6-7, I think C4-5 and C5-6 are slightly worse in my opinion. No cord compression. EMG: Did not show any evidence of cervical radiculopathy or carpal tunnel. Impression: 54-year-old female presents to the office today for evaluation of an uncomfortable tingling and numbness that runs down her right arm across the top of her shoulder into her arm and hand including the index finger and thumb. She is neurologically intact, does have a slightly reduced biceps reflex. She has been through some basic conservative management. Her MRI shows she has degenerative disc disease at multiple levels at C4-5, C5-6 and C6-7 on the right with neuroforaminal narrowing. Her EMG is negative for cervical radiculopathy, but we know that this does not necessarily exclude nerve impingement. I sat down with her and went over her imaging at length. I suspect the symptoms are coming from C5-6 given that the dermatomal distribution seems to fit this the best. There is some numbness across the top of her shoulder however so we could be overlapping with C4-5 as well. Currently she has no pain and this is just an awkward feeling that runs down her arm. It do not get the sense that she has ready for an operation, but things may evolve in that direction over time. I told her she could try other things like cervical traction, further PT etc., but I told her to avoid chiropractors. I will review her imaging with Dr. Villalta, but typically this is something he would offer either anterior cervical diskectomy or total disc arthroplasty if the patient's symptoms were bothersome enough. I told the patient to call us if she wishes to consider surgery, and I would be happy to sit down with her and go over things and a little more detail once I have a finalized plan from Dr. Villalta. Thank you for allowing us to care for your patient. The total time spent with this visit with this patient was 45 minutes reviewing history, physical exam, lumbar imaging review, and implementation of treatment plan or further diagnostic testing Dipak Villalta MD,PhD [facility] Coding Level of Care Code New Pt Level 4 (36561) Diagnoses Cervical radiculopathy M54.12
[2024-05-12 13:56] VITALS: BMI 33.7
== END 2024-05-12 14:31 | disposition home or self-care (01) ==
PROVIDERS: PCP Internal Medicine; Referring Provider Physical Medicine & Rehabilitation; Visit Provider Physician Assistant
DX: M54.12 Radiculopathy, cervical region (principal)
CPT/HCPCS: 99204

== ENCOUNTER → 2024-05-12 13:46 | Outpatient (BNVA) | payer OTHER, SELFPAY | PROVIDERS: PCP Internal Medicine; Referring Provider Physical Medicine & Rehabilitation; Visit Provider Physician Assistant ==

== ENCOUNTER 2024-11-04 14:35 | Outpatient (AMB) | payer OTHER, SELFPAY ==
--- NOTE | 2024-11-04 14:38 | MHC.PC.OV ---
Vital Signs 11/04/24 14:44 BP 136/82 Blood Pressure Location Lt brachial Position Sitting Respiration 14 Pulse 88 Pulse Source Pulse Oximeter Temp 97.8 F Temp Source Oral Pulse Oximetry (%) 97 Oxygen Delivery Method Room Air Intake Visit Reasons: marketing traffic manager referral Intake Note: Went to [facility] mid September. Coughing and wheezing. Went to [facility] last Sunday and was given an xray and was told it was walking pneumonia. Using nebulizer. Finished zpack this morning. Systems Project Manager Required: No Allergies No Known Allergies Allergy (Verified 11/04/24 14:41) Tobacco use date assessed: 11/04/24 Dental Screening Dental Screen Date: 11/04/24 Did you have a dental visit in the last 12 months?: Yes Did you have a dental problem in the last 6 months where you did not have access to dental care?: No Was dental information given to patient?: Patient has dentist HPI HPI Comments History of Present Illness Details The patient is a 53 year old female with a past medical history of melanoma, exercise induced asthma presenting for shortness of breath In mid September started having significant shortness of breath and wheezing. Completed a 12 day course of prednisone. Was feeling better with the medication. Once she went off the symptoms again. Return to urgent care. Had CXR. Questionable walking pneumonia-placed on zpack. She had her last dose today. No real difference in symptoms. Have slightly lessened since onset a month ago. Denies calf pain. 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 Dad has history of blood clots. She has been cleaning out her attic Follows with [facility]. Sees once a year. History of melanoma. History of hand surgery with Dr Estevez. Colonoscopy 03/2023 Mammo 10/2022 Td Feb 2021? Dr Dipika CARO see HPI PHYSICAL EXAM: GENERAL: Alert and oriented x 3. NAD EYES: EOMI. Anicteric. HENT: Moist mucous membranes. No scleral icterus. No cervical lymphadenopathy. LUNGS: scattered wheeze CARDIOVASCULAR: Regular rate and rhythm. No murmur. No JVD. ABDOMEN: Soft, non-tender +bs EXTREMITIES: Tenderness to palptation without swelling or warmth at at the medial base of the calcaneus/ SKIN: No rashes or lesions. Warm. NEUROLOGIC: No focal neurological deficits. CN II-XII grossly intact PSYCHIATRIC: Cooperative. Appropriate mood and affect [facility] Medical History (Updated 11/04/24 @ 15:10 by Liz Manning MD) H/O mammogram Obesity, Class I, BMI 30-34.9 History of melanoma Surgical History H/O melanoma excision Family History Father HTN (hypertension) Hypercholesteremia Cardiovascular disease Pancreatic cancer Paternal Grandfather HTN (hypertension) Hypercholesteremia Cardiovascular disease Other Clotting disorder Social History (Updated 11/04/24 @ 14:52 by Cristal Land CMA) Housing: House Alcohol intake: current Patient Tobacco Use Status: Former Tobacco user Cigarette Packs Per Day: 0.5 Years Smoked: 5 e-Cigarette/Vaping Use: Never Used service: No Current occupational status: employed 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 1. Little interest or pleasure in doing things: not at all 2. Feeling down, depressed, or hopeless: not at all 3. Trouble falling or staying asleep, or sleeping too much: not at all 4. Feeling tired or having little energy: not at all 5. Poor appetite or overeating: not at all 6. Feeling bad about yourself - or that you are a failure or have let yourself or your family down: not at all 7. Trouble concentrating on things, such as reading the newspaper or watching television: not at all 8. Moving or speaking so slowly that other people could have noticed. Or the opposite - being so fidgety or restless that you have been moving around a lot more than usual: not at all 9. Thoughts that you would be better off or of hurting yourself in some way: not at all Total score: 0 Depression Screening Interpretation: Negative Depression Screening Done: Yes 95007 - PHQ-9 Billing: Yes Source: Developed by Drs. Blayne Diaz, Berenice Somers, Carlton Ramos and colleagues, with an educational flako from [employer]. Thrive Questionnaire Date Thrive assessed: 11/01/24 I am a: Patient What is your living situation today?: I have a steady place to live Within the past 12 months, did the food you bought not last and you didn't have the money to get more?: Never true Within the past 12 months, did you worry whether your food would run out before you got money to buy more?: Never true Do you have trouble paying for medicines?: No Do you have trouble getting transportation to medical appointments?: No Do you have trouble paying your heating and electricity bill?: No Do you have trouble taking care of your child, family member or friend?: No Do you have trouble with day-to-day activities such as bathing, preparing meals, shopping, managing finances, etc.?: No Are you currently unemployed and looking for a job?: No Are you interested in more education?: No Please select the resources that you would like help with: None Currently or been in a relationship where the following occur: No concerns reported THRIVE Score: 0 AUDIT C Alcohol Use Questionnaire (AUDIT-C) 1. How often do you have a drink containing alcohol?: 2-3 times a week 2. How many drinks containing alcohol do you have on a typical day when you are drinking?: 1 or 2 3. How often do you have six or more drinks on one occasion?: Never Total Score: 3 SONG-7 AMB Questionnaire SONG-7 Date SONG - 7 assessed: 11/04/24 Feeling nervous, anxious, or on edge: 0 = Not at all Not being able to stop or control worryin = Not at all Worrying too much about different things: 0 = Not at all Trouble relaxin = Not at all Being so restless that it is hard to sit still: 0 = Not at all Becoming easily annoyed or irritable: 0 = Not at all Feeling afraid as if something awful might happen: 0 = Not at all Total SONG-7 score (0-4 normal; 5-9 mild; 10-14 moderate; 15-21 severe): 0 Source: Developed by Drs. Blayne Diaz, Berenice Somers, Carlton Ramos and colleagues, with an educational flako from [employer]. SONG-7 Assessment Billing SONG-7 Assessment Tool: SONG-7 Assessment 64381 Physical exam (Primary Care) Vital Signs: Last Vital Signs Temp 97.8 F 11/04/24 14:44 Pulse 88 11/04/24 14:44 Resp 14 11/04/24 14:44 BP 136/82 11/04/24 14:44 Pulse Ox 97 11/04/24 14:44 Oxygen Delivery Method Room Air 11/04/24 14:44 Tobacco/Smoking Status: Tobacco use Status Tobacco use date assessed 11/04/24 11/04/24 14:48 Patient Tobacco Use Status Former Tobacco user 11/04/24 14:52 e-Cigarette/Vaping Use Never Used 11/04/24 14:52 PHQ-9: PHQ-9 Score PHQ-9: Total score 0 11/04/24 14:52 Depression Screening Interpretation: Negative Thrive Assessment: Date of Thrive Assessment Date Thrive assessed 11/01/24 11/04/24 14:48 Currently or been in a relationship where the following occur: No concerns reported Coding Level of Care Code Est Pt Level 4 (42471) Diagnoses Moderate persistent reactive airway disease with acute exacerbation J45.41 Asthma severity: moderate Asthma persistence: persistent Asthma complication type: with acute exacerbation Wheezing R06.2 Shortness of breath R06.02 Additional Codes SONG-7 Assessment Billing - SONG-7 Assessment Tool: SONG-7 Assessment 00268 ([id number]) PHQ-9 - 72507 - PHQ-9 Billing: Yes ([id number]) Assessment & Plan Assessment & Plan (1) Reactive airway disease: Code(s): J45.909 - Unspecified asthma, uncomplicated Category: Medical Qualifiers: Asthma severity: moderate Asthma persistence: persistent Asthma complication type: with acute exacerbation Qualified Code(s): J45.41 - Moderate persistent asthma with (acute) exacerbation (2) Wheezing: Code(s): R06.2 - Wheezing Category: Medical (3) Shortness of breath: Code(s): R06.02 - Shortness of breath Category: Medical Plan Some concern for PE though her symptoms did improve on steroids Will get DDimer and order CTA Referral to pulmonary placed Orders: Orders Basic Metabolic Panel Today R06.02 - Shortness of breath, R06.2 - Wheezing CT angio chest PE protocol Today R06.02 - Shortness of breath, R06.2 - Wheezing D Dimer High Sensitivity Today R06.02 - Shortness of breath, R06.2 - Wheezing Complete Blood Count Auto Diff Today R06.02 - Shortness of breath, R06.2 - Wheezing Referrals Pulmonology Referral J45.909 - Unspecified asthma, uncomplicated, R06.02 - Shortness of breath, R06.2 - Wheezing
[2024-11-04 14:44] VITALS: BP 136/82; PULSE 88; RESP 14; TEMP 36.6; O2SAT 97
--- OUTSIDE RECORDS SUMMARY | 2024-11-04 15:46 | XMS_ITS | Encounter Summary ---
Author Organization [facility] Address [address] [place] [address] Care Team Providers Care Lead Programmer Analyst Name Role Phone Liz Manning MD Primary Care Provider [phone] Reason for Visit * Reason Comments Cough Persistent cough x3 weeks, improved with 12 day prednisone taper, but cough returned 3 days ago and has become productive, with some wheezing at night Encounter Details Date Type Department Care Team (Late st Contact Info) Description 10/31/2024 2:30 PM EDT Office Visit [facility] [address] [phone] Mario Oconnor MD [address] [place] [address] Tiffanie Hills, RADIATOR CORE TESTER [address] [place] [address] Mild persistent asthma with exacerbation (Primary Dx); Chest congestion; Bacterial pneumonia Social History Tobacco Use Types Packs/Day Years Used Date Smoking Tobacco: Unknown Tobacco Cessation:Counseling Given: Not Answered Comments Unknown Sex and Gender Information Value Date Recorded Sex Assigned at Not on file Legal Sex Female 11:59 AM EDT Gender Identity Not on file Sexual Orientation Not on file documented as of this encounter Last Filed Vital Signs Vital Sign Reading Time Taken Comments Blood Pressure 154/97 10/31/2024 12:36 PM EDT Pulse 66 10/31/2024 12:36 PM EDT Temperature 36.8 ??C (98.2 ??F) 10/31/2024 12:36 PM E DT Respiratory Rate 16 10/31/2024 12:36 PM EDT Oxygen Saturation 99% 10/31/2024 12:36 PM EDT Inhaled Oxygen Concentration - - Weight 79.4 kg (175 lb) 10/31/2024 12:36 PM EDT Height 162.6 cm (5' 4 ) 10/31/2024 12:36 PM EDT Body Mass Index 30.04 10/31/2024 12:36 PM EDT documented in this encounter Progress Notes * Tiffanie Vance Hills, RADIATOR CORE TESTER - 10/31/2024 12:49 PM EDT Assessment & Plan Tessie was seen today for cough. Diagnoses and all orders for this visit: Mild persistent asthma with exacerbation - ipratropium-albuterol (DUONEB) 0.5-2.5 mg/3 mL nebulizer solution; Take 3 mL by nebulization 4 (four) times a day. - Nebulizer Misc; Please provide nebulizer as covered by patient insurance as well as appropriate tubing, at least 3 sets. - predniSONE (DELTASONE) 20 MG tablet; Take 2 tablets (40 mg total) by mouth daily. With food. - ipratropium-albuterol (DUONEB) 0.5-2.5 mg/3 mL nebulizer solution 3 mL Chest congestion - XR Chest 2 views - Nebulizer Misc; Please provide nebulizer as covered by patient insurance as well as appropriate tubing, at least 3 sets. Bacterial pneumonia - azithromycin (ZITHROMAX) 250 MG tablet; Take 2 tablets by mouth on day 1 followed by 1 tablet by mouth daily on days 2 through 5. I independently reviewed the Xray images via the electronic system and my reading is as follows: 2 Views, chest Final Read: No significant cardiopulmonary disease. There is some haziness in the right lower lobe.No obvious consolidations. Nebulizer Treatment Procedure Note: O2 sat from 99% to 100% post nebulizer treatment with significantly clearer breath and bronchial wheezing sounds. Mild persistent asthma that has not improved with use of handheld inhalers. Did have temporary improvement with prednisone. Chest x-ray is questionable for walking pneumonia. She was started on azithromycin, an emergency course of prednisone to be used if the DuoNeb is not effective in managing symptoms. DuoNeb was provided in the clinic, patient responded very well to treatment. This was orderedfor patient at home. Encouraged to follow-up with primary care provider in 7 days if there is no improvement and spite of treatment measures. No results found for this or any previous visit (from the past 2 hours). Subjective Subjective Patient ID: Tessie Feliz is a 54 y.o. female. Patient has a history of asthma. She has had persistent cough for the last 3 weeks. She was seen int clinic/ and was treated with a tapered dose of prednisone at that time. She states that itdid help significantly but unfortunately her symptoms started returning 4 days after she had completed the taper dose of prednisone. Prior to that she had been using the Pulmicort as well as the albuterol rescue inhaler, but it did not seem to help her symptoms. She has noted some congestion in thechest, last night was particularly difficult she felt like she was struggling to breathe and spite of using her inhalers. Is otherwise feeling well. Review of Systems Constitutional: Positive for activity change and fatigue. Negative for chills and fever. HENT: Negative. Respiratory: Positive for cough, chest tightness, shortness of breath and wheezing. Cardiovascular: Negative. Musculoskeletal: Negative. Neurological: Negative. Objective Objective Vitals: 10/31/24 1236 BP: (!) 154/97 Pulse: 66 Resp: 16 Temp: 98.2 ??F (36.8 ??C) SpO2: 99% Weight: 79.4 kg (175 lb) Height: 1.626 m (5' 4 ) Physical Exam Vitals and nursing note reviewed. Constitutional: General: She is awake. Appearance: Normal appearance. She is well-developed and well-groomed. She is not ill-appearing, toxic-appearing or diaphoretic. Cardiovascular: Rate and Rhythm: Normal rate and regular rhythm. Pulmonary: Effort: Pulmonary effort is normal. Breath sounds: Examination of the right-middle field reveals wheezing and rhonchi. Examination of the left-middle field reveals wheezing. Examination of the right-lower field reveals rhonchi. Examination of the left-lower field reveals rhonchi. Wheezing and rhonchi present. No rales. Skin: General: Skin is warm and dry. Neurological: General: No focal deficit present. Mental Status: She is alert and oriented to person, place, and time. Psychiatric: Attention and Perception: Attention normal. Mood and Affect: Affect normal. Speech: Speech normal. Behavior: Behavior normal. Behavior is cooperative. documented in this encounter Plan of Treatment Not on file documented as of this encounter Procedures Procedure Name Priority Date/Time Associated Diagnosis Comments XR CHEST 2 VIEWS STAT 10/31/2024 1:44 PM EDT Chest congestion documented in this encounter Results * XR Chest 2 views (10/31/2024 1:44 PM EDT) Anatomical Region Laterality Modality Chest Computed Radiogr aphy 10/31/2024 1:47 PM EDT Impressions 10/31/2024 1:47 PM EDT No acute cardiopulmonary disease. Narrative 10/31/2024 1:47 PM EDT Frontal and lateral chest films, no prior for comparison HISTORY: chest congestion; cough 4 weeks FINDINGS: The cardiomediastinal silhouette is normal. ??The lung gifford are clear with no consolidation or effusion. ??Osseous structures are intact. Procedure Note Juanjo Ferrera MD - 10/31/2024 Frontal and lateral chest films, no prior for comparison HISTORY: chest congestion; cough 4 weeks FINDINGS: The cardiomediastinal silhouette is normal. The lung gifford areclear with no consolidation or effusion. Osseous structures are intact. IMPRESSION: No acute cardiopulmonary disease. Tiffanie Hills RADIATOR CORE TESTER IMG DIAGNOSTIC IMAGING ORDERA BLES Final Result documented in this encounter Visit Diagnoses Diagnosis Mild persistent asthma with exacerbation- Primary Unspecified asthma, with exacerbation Chest congestion Other symptoms involving respiratory system and chest Bacterial pneumonia Unspecified bacterial pneumonia documented in this encounter Administered Medications Inactive Administered Medications - up to 1 most recent administrations Medication Order MAR Action Action Date Dose Rate Site ipratropium-albuterol (DUONEB) 0.5-2.5 mg/3 mL nebulizer solution 3 mL 3 mL, Nebulization, Once, On Sun10/31/24 at 1430, For 1 dose, Albuterol expressed in base strength. Albuterol sulfate 3 mg = albuterol (base) 2.5 mg.Indications:Mild persistent asthma with exacerbation Given 10/31/2024 2:03 PM EDT 3 mL documented in this encounter Care Teams Lead Programmer Analyst Relationship Specialty Start Date End Date O'Carson, Liz M, MD [address] [place] [phone] PCP - General Internal Medicine 10/16/24 documented as of this encounter
--- OUTSIDE RECORDS SUMMARY | 2024-11-04 15:46 | XMS_ITS | Encounter Summary ---
Author Organization [facility] Address [address] [place] [address] Care Team Providers Care Software Engineering Analyst Name Role Phone iLz Manning MD Primary Care Provider [phone] Encounter Details Date Type Department Care Team (Late st Contact Info) Description 10/31/2024 1:34 PM EDT Hospital Encounter [facility] [address] [place] [phone] Mario Oconnor MD [address] [place], [place] [id number] Social History Tobacco Use Types Packs/Day Years Used Date Smoking Tobacco: Unknown Comments Unknown Sex and Gender Information Value Date Recorded Sex Assigned at Not on file Legal Sex Female 11:59 AM EDT Gender Identity Not on file Sexual Orientation Not on file documented as of this encounter Plan of Treatment Not on [...] IMPRESSION: No acute cardiopulmonary disease. Tiffanie Hills PRODUCTION CONTROL SUPERVISOR IMG DIAGNOSTIC IMAGING ORDERA BLES Final Result documented in this encounter Visit Diagnoses Not on filedocumented in this encounter Care Teams Software Engineering Analyst Relationship Specialty Start Date End Date Liz Manning MD [address] [place] [phone] PCP - General Internal Medicine 10/16/24 documented as of this encounter
--- OUTSIDE RECORDS SUMMARY | 2024-11-04 15:46 | XMS_ITS ---
Author Organization [employer] [facility] Address [address] [place] [address] Care Team Providers Care Merchant Banker Name Role Phone AZAR DO, SHANIQUE Primary Care Provider Elida Noland Unavailable [phone] REASON FOR VISIT Annual PEDIATRIC ORTHODONTIST Physical Encounters Encounter Location Date Provider Diagnosis [facility] [address] [place] [address] [address] [place] [address] 01/03/2024 Elida Li Plan Of Treatment Next Appt Details Provider Name:Elida alarcon, 01/09/2025 08:50:00 AM, [address], [address], [place], [address], Progress Notes * GRANT BUTTSOB: 2 (54 yo F)Acc No.[id number]:01/03/2024 PROGRESS NOTES Patient:?ROSSY BUTTS Appointment Provider:?Elida alarcon M.D. :1970???Age:53 Y???Sex:Female D ate:01/03/2024 Address:[address] [place] [phone] Pcp:SHANIQUE ASKEW MD Subjective: * Chief Complaints: * ???1. Annual PEDIATRIC ORTHODONTIST Physical. * Medical History:? Objective: * Vitals:? Assessment: Plan: * Treatment: * Images: Billing Information: * Visit Code:? * Procedure Codes:? * Electronic signature of Josh Li MD on 11/04/2024 at 03:46 PM EDT Sign off status: Pending * Appointment Provider:?Elida Li M.D. Date:?01/03/2024 Generated for Debra soto/Zakia/Lukasz on:?11/04/2024 03:46 PM EDT
--- OUTSIDE RECORDS SUMMARY | 2024-11-04 15:46 | XMS_ITS | Patient Health Record ---
Author Organization [facility] Address [address] [place] [address] Care Team Providers Care Automotive Paint Technician Name Role Phone SHANIQUE ASKEW MD Primary Care Provider Elida Noland [phone] Allergies No Known Allergies Results Component Value Reference Range Notes Urinalysis Reviewed date:01/07/2024 10:38:42 AM Interpretation: Performing Lab: Notes/Report: PH 5.0 PROTEIN TR GLUCOSE NEG BLOOD NEG Reason For Referral No Information Medications Medication SIG (Take, Route, Frequency, Duration) Notes Start Date End Date Status Estradiol 0.05 MG/24HR 1 patch to skin T ransdermal Two times a Week for 90 days 01/07/2024 Active Prometrium 200 MG 1 capsule at bedtime Orally every day for 12 days every month for 90 days 01/07/2024 Active Multivitamin Adult - Orally Active Estradiol 0.0375 MG/24HR 1 patch to skin Transdermal TWICE WEEKLY for 90 days 07/11/2023 Active Prometrium 200 MG 1 capsule at bedtime Orally ONCE A DAY FROM DAYS 1 TO 12 Q MONTH for 90 days 07/11/2023 Active Estradiol 0.05 MG/24HR 1 patch to skin T ransdermal Two times a Week for 90 days 10/04/2023 Active Social History Tobacco Use: Social History Observation Description Date Details (start date - stop date) Former Smoker NA - NA Tobacco Use/Smoking Question Answer Notes Are you a former smoker How long has it been since you last smoked? > 10 years Alcohol Screen (Audit-C) Question Answer Notes Did you have a drink contain ing alcohol in the past year? Yes How often did you have a dri nk containing alcohol in the past year? 2 to 4 times a month (2 points) How many drinks did you have on a typical day when you were drinking in the past year? 1 or 2 drinks (0 point) Points 2 Interpretation Negative Problems Problem Type SNOMED Code ICD Code Onset Dates Problem Status W/U Status Risk Notes Problem Unspecified menopausal and perimenopausal disorder (N95.9) Active confirmed Problem Menopause (125329790) Menopausal and female climacteric states (N95.1) Active confirmed Problem Gynecological examination normal (526072915906643) Routine gynecological examination (V72.31) Active confirmed Vital Signs Temperature 97.3 degrees Fahrenheit 01/07/2024 Blood pressure diastolic 84 mm Hg 01/07/2024 Height 64.75 in 01/07/2024 Blood pressure systolic 130 mm Hg 01/07/2024 Weight 187 lbs 01/07/2024 BMI 31.36 kg/m2 01/07/2024 Encounters Encounter Location Date Provider Diagnosis [address] [address] 01/07/2024 Elida Li Encounter for gynecological examination (general) (routine) without abnormal findings Z01.419 ; Encounter for screening mammogram for malignant neoplasm of breast Z12.31 ; Hormone replacement therapy Z79.890 and Dense breasts, unspecified R92.30 Assessments Encounter Date Diagnosis (ICD Code) Assessment Notes Treatment Notes Treatment Clinical Notes Section Notes 01/07/2024 Encounter for gynecological examination (general) (routine) without abnormal findings (ICD-10 - Z01.419) NO PAP TEST, DUE IN 2024. 01/07/2024 Encounter for screening mammogram for malignant neoplasm of breast (ICD-10 - Z12.31) REGULAR MAMMOGRAMS AND SBE'S WERE RECOMMENDED. 01/07/2024 Hormone replacement therapy (ICD-10 - Z79.890) DISCUSSED BENEFITS AND RISKS OF HRT. SHE HAS NO CONTRAINDICATIONS AND ACCEPTS RISKS. CONTINUE HRT. 01/07/2024 Dense breasts, unspecified (ICD-10 - R92.30) DISCUSSED DENSE BREASTS ON MAMMOGRAM AND ITS IMPLICATIONS. 3D MAMMOGRAMS WERE RECOMMENDED. Plan Of Treatment Pending Test Test Name Order Date MAMMOGRAM, SCREENING 03/09/2015 Urinalysis 09/12/2021 ESTRADIOL 04/30/2023 FSH 04/30/2023 LH 04/30/2023 THIN PREP,HPV,RAFAL IF HPV+ (>29YR)(SCRN) 04/19/2017 MM Digital Mammo Screening 09/12/2021 MM Digital Mammo Screening 12/28/2022 MM Digital Mammo Screening 01/07/2024 Next Appt Details Provider Name:Elida alarcon, 01/09/2025 08:50:00 AM, [address], [address], [place], [address], Insurance Providers Payer Name Payer Address Payer Phone Subscriber Number Group Number Insured Name Patient Relationship to Insured Coverage Start Date Coverage End Date [employer] [address] [place] [address] [id number] ROSSY BUTTS Self - patient is the insured Medical (General) History Medical History History ICD Code Inconclusive mammogram R92.2 Melanoma in situ, unspecified D03.9 Unspecified menopausal and perimenopausa l disorder N95.9 Menopausal and female climacteric states N95.1 Hormone replacement therapy Z79.890 Mammographic heterogeneous density, bila teral breasts R92.333 Surgical History Surgery Date(Month/Year) Left Arm Skin Excision Left Hand Surgery Left Foot Surgery Right Breast Biopsy 05/15/16 Hospitalization History Reason Date(Month/Year) See Surgical Hx
--- OUTSIDE RECORDS SUMMARY | 2024-11-04 15:46 | XMS_ITS | Clinical Summary ---
Author Organization [facility] Address [address] [place] [address] Care Team Providers Care Marina Porter Name Role Phone Liz Manning MD Primary Care Provider [phone] Allergies No known active allergies Medications albuterol (PROVENTIL HFA; VENTOLIN HFA) 108 (90 Base) MCG/ACT inhaler Inhale 2 puffs 4 times daily (every 6 hours) as needed for shortness of breath. 10/12/19 25 Active estradiol (VIVELLE-DOT) 0.05 MG/24HR external patch Place 1 patch on the skin 2 (two) times a week. 08/30/19 25 Active progesterone (PROMETRIUM) 200 MG capsule Take 200 mg by mouth daily. 09/20/19 25 Active budesonide (PULMICORT) 180 MCG/ACT inhaler Inhale 1 puff 2 (two) times a day. Active cetirizine (ZyrTEC) 10 MG tabletIndication s:Mild intermittent asthma with acute exacerbation Take 1 tablet (10 mg total) by mouth daily. 30 tablet 10/17/19 25 025 Active fluticasone (FloNASE) 50 mcg/spray nasal sprayIndications :Mild intermittent asthma with acute exacerbation 1 spray into each nostril daily. 1 each 10/17/19 25 Active azithromycin (ZITHROMAX) 250 MG tabletIndication s:Bacterial pneumonia Take 2 tablets by mouth on day 1 followed by 1 tablet by mouth daily on days 2 through 5. 6 tablet 11/01/19 25 025 Active ipratropium-albu terol (DUONEB) 0.5-2.5 mg/3 mL nebulizer solutionIndicati ons:Mild persistent asthma with exacerbation Take 3 mL by nebulization 4 (four) times a day. 90 mL 11/01/19 25 Active Nebulizer MiscIndications: Chest congestion,Mild persistent asthma with exacerbation Please provide nebulizer as covered by patient insurance as well as appropriate tubing, at least 3 sets. 1 each 11/01/19 25 Active predniSONE (DELTASONE) 20 MG tabletIndication s:Mild persistent asthma with exacerbation Take 2 tablets (40 mg total) by mouth daily. With food. 10 tablet 11/01/19 25 025 Active predniSONE (DELTASONE) 10 MG tabletIndication s:Mild intermittent asthma with acute exacerbation Take 4 tabs daily x 3 days and then take 3 tabs daily x 3 days and then take 2 tabs daily x 3 days and then take 1 tab daily x 3 days. Take in the morning with food. 30 tablet 10/17/19 25 025 Discontin ued(Thera py completed ) Hospital, Clinic, or Other Facility Administered Medication Ordered Dose Route Frequency Start Date End Date Status ipratropium-albutero l (DUONEB) 0.5-2.5 mg/3 mL nebulizer solution 3 mLIndications:Mild persistent asthma with exacerbation 3 mL NEBULIZATION Once 10/31/2024 10/31/2024 Ended Active Problems No known active problems Encounters Date Type Department Care Team Description 10/31/2024 2:30 PM EDT Office Visit [facility] [address] [address] Mario Oconnor MD Devitt, Anna C, SUJEY Mild persistent asthma with exacerbation (Primary Dx); Chest congestion; Bacterial pneumonia 10/31/2024 1:34 PM EDT Hospital Encounter [facility] [address] [address] Mario Oconnor MD 10/31/2024 Scanned Document [address] [place] [phone] Provider, Generic 10/31/2024 Travel 10/31/2024 Scanned Document [address] [place] [address] Provider, Generic 10/16/2024 12:00 PM EDT Office Visit [facility] [address] [phone] Mario Oconnor MD Wiggins, Miriam K, PA-C Mild intermittent asthma with acute exacerbation (Primary Dx) 10/16/2024 Travel from Last 3 Months Social History Tobacco Use Types Packs/Day Years Used Date Smoking Tobacco: Unknown Tobacco Cessation:Counseling Given: Not Answered Comments Unknown Sex and Gender Information Value Date Recorded Sex Assigned at Not on file Legal Sex Female 11:59 AM EDT Gender Identity Not on file Sexual Orientation Not on file Last Filed Vital Signs Vital Sign Reading [...] Mass Index 30.04 10/31/2024 12:36 PM EDT Plan of Treatment Health Maintenance Due Date Last Done Comments Hepatitis C Virus Screening 1972 HIV Screening 02/16/1985 DTaP/Tdap/Td Vaccines (1 - Tdap) 02/16/1991 Hepatitis B Vaccines (1 of 3 - 19+ 3-dose series) 02/16/1991 Pneumococcal Vaccines 50+ (1 of 2 - PCV) 02/16/1991 Pap Smear (Ages 21-65) 02/16/1993 Mammogram 2012 Colonoscopy 02/16/2017 Zoster (Shingles) Vaccine (1 of 2) 02/16/2022 COVID-19 Vaccine (3 - season) 2024, 09/17/2020 Influenza Vaccine 01/23/2025 03/24/2019, 03/25/2016 Procedures Procedure Name Priority Date/Time Associated Diagnosis Comments XR CHEST 2 VIEWS STAT 10/31/2024 1:44 PM EDT Chest congestion from Last 3 Months Results * XR Chest 2 views (10/31/2024 [...] IMPRESSION: No acute cardiopulmonary disease. Tiffanie Hills DIAL POLISHER IMG DIAGNOSTIC IMAGING ORDERA BLES Final Result from Last 3 Months Insurance [employer] HMO/POS Care Teams Marina Porter Relationship Specialty Start Date End Date Liz Manning MD [address] [place] [address] AIMEE Jaimes [phone] PCP - General Internal Medicine 10/16/24
--- OUTSIDE RECORDS SUMMARY | 2024-11-04 15:46 | XMS_ITS | Encounter Summary ---
Author Organization [facility] Address [address] [place] [address] Care Team Providers Care Podiatric Medicine Doctor Name Role Phone Liz Manning MD Primary Care Provider [phone] Encounter Details Date Type Department Care Team (Late st Contact Info) Description 10/31/2024 Scanned Document [address] [place] [phone] Provider, Generic Social History Tobacco Use Types Packs/Day Years Used Date Smoking Tobacco: Unknown Comments Unknown Sex and Gender Information Value Date Recorded Sex Assigned at Not on file Legal Sex Female 11:59 AM EDT Gender Identity Not on file Sexual Orientation Not on file documented as of this encounter Plan of Treatment Not on file documented as of this encounter Visit Diagnoses Not on filedocumented in this encounter Care Teams Podiatric Medicine Doctor Relationship Specialty Start Date End Date Liz Manning MD [address] [place] [address] AIMEE Jaimes [phone] PCP - General Internal Medicine 10/16/24 documented as of this encounter
--- OUTSIDE RECORDS SUMMARY | 2024-11-04 15:46 | XMS_ITS ---
Author Name [facility] Organization Unknown History of Medication Use Medication Directions Dispensed Refills Start Date End Date Stat us ipratropium-albuter ol (DUONEB) 0.5-2.5 mg/3 mL nebulizer solution Take 3 mL by nebulization 4 (four) times a day. 10/31/2024 10/31/2024 active azithromycin (ZITHROMAX) 250 MG tablet Take 2 tablets by mouth on day 1 followed by 1 tablet by mouth daily on days 2 through 5. 10/31/2024 active Nebulizer [facility] Please provide nebulizer as covered by patient insurance as well as appropriate tubing, at least 3 sets. 10/31/2024 active predniSONE (DELTASONE) 20 MG tablet Take 2 tablets (40 mg total) by mouth daily. With food. 10/31/2024 active cetirizine (ZyrTEC) 10 MG tablet Take 1 tablet (10 mg total) by mouth daily. 10/16/2024 active fluticasone (FloNASE) 50 mcg/spray nasal spray 1 spray into each nostril daily. 10/16/2024 active predniSONE (DELTASONE) 10 MG tablet Take 4 tabs daily x 3 days and then take 3 tabs daily x 3 days and then take 2 tabs daily x 3 days and then take 1 tab daily x 3 days. Take in the morning with food. 10/16/2024 active albuterol (PROVENTIL HFA; VENTOLIN HFA) 108 (90 Base) MCG/ACT inhaler Inhale 2 puffs 4 times daily (every 6 hours) as needed for shortness of breath. 10/11/2024 active progesterone (PROMETRIUM) 200 MG capsule Take 200 mg by mouth daily. 09/19/2024 active estradiol (VIVELLE-DOT) 0.05 MG/24HR external patch Place 1 patch on the skin 2 (two) times a week. 08/29/2024 active budesonide (PULMICORT) 180 MCG/ACT inhaler Inhale 1 puff 2 (two) times a day. active Problems Problem Status Onset Date Problem Type Date of Resoluti on Source Bacterial pneumonia [facility] Chest congestion active EncounterDiagn[facility]Act [facility] Mild persistent asthma with exacerbation active EncounterDiagnosisAct [facility] Encounters Encounter Type Encounter Reason Primary Diagnosis Location Date Ambulatory [facility] 10/31/2024 Ambulatory Cough Cough [facility] 10/31/2024 Ambulatory Cough Cough [facility] 10/16/2024 Care Team Organization Name Specialty Phone Email Start Date End Da te [facility] Liz Manning Primary Care 10/18/2024 [facility] 10/16/2024 [facility] Liz Manning Primary Care 10/16/2024
--- OUTSIDE RECORDS SUMMARY | 2024-11-04 15:46 | XMS_ITS | Encounter Summary ---
Author Organization [facility] Address [address] [place] [address] Care Team Providers Care Rehab Aide Name Role Phone Liz Manning MD Primary Care Provider [phone] Encounter Details Date Type Department Care Team (Late st Contact Info) Description 10/31/2024 Scanned Document [address] [place] [phone] Provider, Generic Social History Tobacco Use [...] on filedocumented in this encounter Care Teams Rehab Aide Relationship Specialty Start Date End Date Liz Manning MD [address] [place] [address] AIMEE Jaimes [phone] PCP - General Internal Medicine 10/16/24 documented as of this encounter
--- OUTSIDE RECORDS SUMMARY | 2024-11-04 15:46 | XMS_ITS | Encounter Summary ---
Author Organization [facility] Address [address] [place] [address] Care Team Providers Care Commissioner Of Officials Name Role Phone Liz Manning MD Primary Care Provider [phone] Encounter Details Date Type Department Care Team (Latest Contact Info) Description 10/31/2024 Travel Social History Tobacco Use Types Packs/Day Years [...] on filedocumented in this encounter Care Teams Commissioner Of Officials Relationship Specialty Start Date End Date Liz Manning MD [address] [place] [address] AIMEE Jaimes [phone] PCP - General Internal Medicine 10/16/24 documented as of this encounter
== END 2024-11-04 15:06 | disposition home or self-care (01) ==
LOC: HO.HMCFM 14:36
PROVIDERS: PCP Internal Medicine; Visit Provider Internal Medicine
DX: J45.41 Moderate persistent asthma with (acute) exacerbation (principal); R06.2 Wheezing; R06.02 Shortness of breath

== ENCOUNTER → 2024-11-04 14:35 | Outpatient (BNVA) | payer OTHER, SELFPAY | PROVIDERS: PCP Internal Medicine; Visit Provider Internal Medicine | DX: J45.41 Moderate persistent asthma with (acute) exacerbation (principal); R06.02 Shortness of breath | CPT/HCPCS: 96127 ==

== ENCOUNTER 2024-11-04 15:22 | Outpatient (REF) | payer OTHER, SELFPAY ==
--- OUTSIDE RECORDS SUMMARY | 2024-11-04 16:13 | XMS_ITS | Encounter Summary ---
Author Organization [facility] Address [address] [place] [address] Care Team Providers Care Windows Software Developer Name Role Phone Liz Manning MD Primary Care Provider [phone] Encounter Details Date Type Department Care Team (Late st Contact Info) Description 10/31/2024 Scanned Document [address] [place] [phone] Provider, Generic Social History Tobacco Use [...] on filedocumented in this encounter Care Teams Windows Software Developer Relationship Specialty Start Date End Date Liz Manning MD [address] [place] [address] AIMEE Jaimes [phone] PCP - General Internal Medicine 10/16/24 documented as of this encounter
--- OUTSIDE RECORDS SUMMARY | 2024-11-04 16:13 | XMS_ITS | Encounter Summary ---
Author Organization [facility] Address [address] [place] [address] Care Team Providers Care Slitter Creaser Slotter Operator Name Role Phone Liz Manning MD Primary Care Provider Encounter Details Date Type Department Care Team (Late st Contact Info) Description 10/31/2024 Scanned Document [address] [place] [phone] Provider, Generic Social History Tobacco Use [...] on filedocumented in this encounter Care Teams Slitter Creaser Slotter Operator Relationship Specialty Start Date End Date Liz Manning MD [address] [place] [address] AIMEE Jaimes [phone] PCP - General Internal Medicine 10/16/24 documented as of this encounter
--- OUTSIDE RECORDS SUMMARY | 2024-11-04 16:13 | XMS_ITS | Encounter Summary ---
Author Organization [facility] Address [address] [place] [address] Care Team Providers Care Hard Tile Setter Apprentice Name Role Phone Liz Manning MD Primary Care Provider [phone] Encounter Details Date Type Department Care Team [...] on filedocumented in this encounter Care Teams Hard Tile Setter Apprentice Relationship Specialty Start Date End Date Liz Manning MD [address] [place] [address] AIMEE Jaimes [phone] PCP - General Internal Medicine 10/16/24 documented as of this encounter
--- OUTSIDE RECORDS SUMMARY | 2024-11-04 16:13 | XMS_ITS | Encounter Summary ---
Author Organization [facility] Address [address] [place] [address] Care Team Providers Care Phonograph Mechanic Name Role Phone Liz Manning MD Primary Care Provider [phone] Encounter Details Date Type Department Care Team (Late st Contact Info) Description 10/31/2024 1:34 PM EDT Hospital Encounter [facility] [address] [place] [phone] Mario Oconnor MD [address] [place], [place] [id number] Social History Tobacco Use Types Packs/Day Years [...] IMPRESSION: No acute cardiopulmonary disease. Tiffanie Hills BAG BUILDER IMG DIAGNOSTIC IMAGING ORDERA BLES Final Result documented in this encounter Visit Diagnoses Not on filedocumented in this encounter Care Teams Phonograph Mechanic Relationship Specialty Start Date End Date Liz Manning MD [address] [place] [phone] PCP - General Internal Medicine 10/16/24 documented as of this encounter
--- OUTSIDE RECORDS SUMMARY | 2024-11-04 16:14 | XMS_ITS | Clinical Summary ---
Author Organization [facility] Address [address] [place] [address] Care Team Providers Care Manager Rail Name Role Phone Liz Manning MD Primary Care Provider [phone] Allergies No known active allergies Medications albuterol [...] Description 10/31/2024 2:30 PM EDT Office Visit [facility] [address] [phone] Mario Oconnor MD Devitt, Anna C, SUJEY Mild persistent asthma with exacerbation (Primary Dx); Chest congestion; Bacterial pneumonia 10/31/2024 1:34 PM EDT Hospital Encounter [facility] [address] [phone] Mario Oconnor MD 10/31/2024 Scanned Document [address] [place] [phone] Provider, Generic 10/31/2024 Travel 10/31/2024 Scanned Document [address] [place] [address] Provider, Generic 10/16/2024 12:00 PM EDT Office Visit [facility] [address] [phone] Mario Oconnor MD Wiggins, Miriam K, PA-C [...] IMPRESSION: No acute cardiopulmonary disease. Tiffanie Hills HR SYSTEMS ANALYST IMG DIAGNOSTIC IMAGING ORDERA BLES Final Result from Last 3 Months Insurance [employer] HMO/POS Care Teams Manager Rail Relationship Specialty Start Date End Date Liz Manning MD [address] [place] [address] AIMEE Jaimes [phone] PCP - General Internal Medicine 10/16/24
--- OUTSIDE RECORDS SUMMARY | 2024-11-04 16:14 | XMS_ITS | Encounter Summary ---
Author Organization [facility] Address [address] [place] [address] Care Team Providers Care Fish Peddler Name Role Phone Liz Manning MD Primary Care Provider [phone] Reason for Visit * Reason Comments Cough Persistent cough x3 weeks, improved with 12 day prednisone taper, but cough returned 3 days ago and has become productive, with some wheezing at night Encounter Details Date Type Department Care Team (Late st Contact Info) Description 10/31/2024 2:30 PM EDT Office Visit [facility] [address] [phone] Mario Oconnor MD [address] [place] [address] Tiffanie Hills, SURVEILLANCE SYSTEMS ANALYST [address] [place] [address] Mild persistent asthma with exacerbation (Primary Dx); [...] encounter Progress Notes * Tiffanie Vance Hills, SURVEILLANCE SYSTEMS ANALYST - 10/31/2024 12:49 PM EDT Assessment & [...] IMPRESSION: No acute cardiopulmonary disease. Tiffanie Hills SURVEILLANCE SYSTEMS ANALYST IMG DIAGNOSTIC IMAGING ORDERA BLES [...] mL documented in this encounter Care Teams Fish Peddler Relationship Specialty Start Date End Date O'Carson, Liz M, MD [address] [place] [phone] PCP - General Internal Medicine 10/16/24 documented as of this encounter
[2024-11-04 17:57] LABS: MANUAL DIFF FLAG NO
[2024-11-04 18:13] LABS: Basophils Absolute Auto 0.1 X10*3/uL (0.0-0.2); Basophils Percent Auto 0.5 % (0-2); Eosinophils Absolute Auto 0.8 X10*3/uL (0.0-0.4); Eosinophils Percent Auto 7.5 % (0-4); Hematocrit 40.3 % (37.0-47.0); Hemoglobin 13.7 g/dl (12.0-16.0); Imm Gran Abs Auto 0.03 X10*3/uL (0.00-0.03); Imm Gran Pct Auto 0.3 % (0.0-0.4); Lymphocytes Absolute Auto 2.5 X10*3/uL (1.2-4.9); Lymphocytes Percent Auto 24.8 % (20-40); Mean Corpuscular Hemoglobin 32.7 pg (27.0-33.0); Mean Corpuscular Volume 96.2 fL (80.0-98.0); Mean Platelet Volume 11.5 fL (9.4-12.3); Monocytes Absolute Auto 0.6 X10*3/uL (0.1-1.2); Neutrophils Absolute Auto 6.2 x10*3/uL (2.0-8.3); Neutrophils Percent Auto 60.9 % (45-73); Platelet Count 267 X10*3/uL (160-400); Red Blood Count 4.19 X10*6/uL (4.20-5.50); Red Cell Distribution Width 12.5 % (11.0-16.0); White Blood Count 10.2 X10*3/uL (4.8-10.8)
[2024-11-04 18:29] LABS: Anion Gap 12 (12-20); Blood Urea Nitrogen 17 mg/dL (9-16); Calcium 9.1 mg/dL (8.4-10.2); Carbon Dioxide 28 mmol/L (22-29); Chloride 104 mmol/L (96-108); D Dimer High Sensitivity < 150 NG/ML; Estimated Glomerular Filt Rate > 60; Glucose Random 105 mg/dL (60-115); Potassium 4.1 mmol/L (3.3-5.1); Sodium 140 mmol/L (135-145)
== END 2024-11-04 15:23 | disposition home or self-care (01) ==
LOC: HO.WFDLDS 15:22
PROVIDERS: Visit Provider Internal Medicine
DX: R06.02 Shortness of breath (principal); R06.2 Wheezing
CPT/HCPCS: 36415; 80048; 85025; 85379

== ENCOUNTER 2024-12-30 10:34 | Outpatient (AMB) | payer OTHER, SELFPAY ==
--- NOTE | 2024-12-30 10:40 | MHC.PC.OV ---
Vital Signs 12/30/24 10:43 Height 5 ft 3 in Weight 190 lb BMI 33.7 BP 114/80 Blood Pressure Location Lt brachial Position Sitting Respiration 14 Pulse 75 Pulse Source Pulse Oximeter Temp 98.2 F Temp Source Oral Pulse Oximetry (%) 99 Oxygen Delivery Method Room Air Intake Visit Reasons: cpe Intake Note: Physical Assembler Small Products Required: No Allergies No Known Allergies Allergy (Verified 12/30/24 10:41) Tobacco use date assessed: 11/04/24 Dental Screening Dental Screen Date: 11/04/24 HPI HPI Comments History of Present Illness Details The patient is a 54 year old female with a past medical history of melanoma, exercise induced asthma presenting for CPE Respiratory: Her symptoms have finally resolved. In mid September started having significant shortness of breath and wheezing. Completed a 12 day course of prednisone. Was feeling better with the medication. Once she went off the symptoms again. Return to urgent care. Had CXR. Questionable walking pneumonia-placed on zpack. She had her last dose today. No real difference in symptoms. Have slightly lessened since onset a month ago. Denies calf pain. 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 Dad has history of blood clots. She has been cleaning out her attic Follows with [facility]. Sees once a year. History of melanoma. History of hand surgery with Dr Estevez. Colonoscopy 03/2023-5 year Mammo [facility] Td Feb 2021? Dr Dipika CARO see HPI PHYSICAL EXAM: GENERAL: Alert and oriented x 3. NAD EYES: EOMI. Anicteric. HENT: Moist mucous membranes. No scleral icterus. No cervical lymphadenopathy. LUNGS: scattered wheeze CARDIOVASCULAR: Regular rate and rhythm. No murmur. No JVD. ABDOMEN: Soft, non-tender +bs EXTREMITIES: Tenderness to palptation without swelling or warmth at at the medial base of the calcaneus/ SKIN: No rashes or lesions. Warm. NEUROLOGIC: No focal neurological deficits. CN II-XII grossly intact PSYCHIATRIC: Cooperative. Appropriate mood and affect [facility] Medical History H/O mammogram Obesity, Class I, BMI 30-34.9 History of melanoma Surgical History H/O melanoma excision Family History Father HTN (hypertension) Hypercholesteremia Cardiovascular disease Pancreatic cancer Paternal Grandfather HTN (hypertension) Hypercholesteremia Cardiovascular disease Other Clotting disorder Social History Housing: House Alcohol intake: current Patient Tobacco Use Status: Former Tobacco user Cigarette Packs Per Day: 0.5 Years Smoked: 5 e-Cigarette/Vaping Use: Never Used service: No Current occupational status: employed 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 Current occupational exposures/hazards: No Cognitive needs: No Hearing needs: No Vision needs: No Questionnaire Thrive Questionnaire Date Thrive assessed: 11/01/24 I am a: Patient What is your living situation today?: I have a steady place to live Within the past 12 months, did the food you bought not last and you didn't have the money to get more?: Never true Within the past 12 months, did you worry whether your food would run out before you got money to buy more?: Never true Do you have trouble paying for medicines?: No Do you have trouble getting transportation to medical appointments?: No Do you have trouble paying your heating and electricity bill?: No Do you have trouble taking care of your child, family member or friend?: No Do you have trouble with day-to-day activities such as bathing, preparing meals, shopping, managing finances, etc.?: No Are you currently unemployed and looking for a job?: No Are you interested in more education?: No Please select the resources that you would like help with: None Currently or been in a relationship where the following occur: No concerns reported THRIVE Score: 0 AUDIT C Alcohol Use Questionnaire (AUDIT-C) 1. How often do you have a drink containing alcohol?: Monthly or less 2. How many drinks containing alcohol do you have on a typical day when you are drinking?: 1 or 2 3. How often do you have six or more drinks on one occasion?: Never Total Score: 1 SONG-7 AMB Questionnaire SONG-7 Date SONG - 7 assessed: 11/04/24 Source: Developed by Drs. Blayne Diaz, Berenice B.Carlton Thomas and colleagues, with an educational flako from [employer]. ACT Questionnaire In the past 4 weeks, how much of the time did your asthma keep you from getting as much done at work, school or at home?: None of the time During the past 4 weeks, how often have you had shortness of breath?: 1-2 times a week During the past 4 weeks, how often did your asthma symptoms wake you up at night or earlier than usual in the morning?: Not at all During the past 4 weeks, how often have you had to use your rescue inhaler or nebulizer medication?: Not at all How would you rate your asthma control during the past 4 weeks?: Somewhat controlled ACT Interpretation: Positive Score: 22 Physical exam (Primary Care) Vital Signs: Last Vital Signs Temp 98.2 F 12/30/24 10:43 Pulse 75 12/30/24 10:43 Resp 14 12/30/24 10:43 BP 114/80 12/30/24 10:43 Pulse Ox 99 12/30/24 10:43 Oxygen Delivery Method Room Air 12/30/24 10:43 BMI result Body Mass Index 33.7 Tobacco/Smoking Status: Tobacco use Status Tobacco use date assessed 11/04/24 12/30/24 10:45 Patient Tobacco Use Status Former Tobacco user 12/30/24 10:45 e-Cigarette/Vaping Use Never Used 12/30/24 10:45 Thrive Assessment: Date of Thrive Assessment Date Thrive assessed 11/01/24 12/30/24 10:45 Currently or been in a relationship where the following occur: No concerns reported Coding Level of Care Code Est Pt Prev Care 40-64y(58436) Diagnoses Physical exam Z00.00 Familial hypercholesterolemia E78.01 Hyperlipidemia type: familial hypercholesterolemia Cervical radiculopathy M54.12 Moderate persistent reactive airway disease with acute exacerbation J45.41 Asthma severity: moderate Asthma persistence: persistent Asthma complication type: with acute exacerbation Additional Codes Asthma Control Questionnaire - ACT Interpretation: Positive ([id number]) Assessment & Plan Assessment & Plan (1) Physical exam: Code(s): Z00.00 - Encounter for general adult medical examination without abnormal findings Category: Medical (2) Hyperlipidemia: Code(s): E78.5 - Hyperlipidemia, unspecified Category: Medical Qualifiers: Hyperlipidemia type: familial hypercholesterolemia Qualified Code(s): E78.01 - Familial hypercholesterolemia (3) Cervical radiculopathy: Code(s): M54.12 - Radiculopathy, cervical region Category: Medical (4) Reactive airway disease: Code(s): J45.909 - Unspecified asthma, uncomplicated Category: Medical Qualifiers: Asthma severity: moderate Asthma persistence: persistent Asthma complication type: with acute exacerbation Qualified Code(s): J45.41 - Moderate persistent asthma with (acute) exacerbation Plan 54 year old for cpe Interval history reviewed Improvement in breathing. does have pulm scheduled HLD-stable Mammo & colonoscopy utd
[2024-12-30 10:43] VITALS: BP 114/80; PULSE 75; RESP 14; TEMP 36.8; O2SAT 99; BMI 33.7
--- OUTSIDE RECORDS SUMMARY | 2024-12-30 11:33 | XMS_ITS | Patient Health Record ---
Author Organization [facility] Address [address] [place] [address] Care Team Providers Care Travel Rn Or Name Role Phone SHANIQUE ASKEW MD Primary Care Provider Elida Noland [phone] Allergies No Known Allergies Results Component Value Reference Range Notes Urinalysis Reviewed date:01/07/2024 10:38:42 AM Interpretation: Performing Lab: Notes/Report: PH 5.0 PROTEIN TR GLUCOSE NEG BLOOD NEG Reason For Referral No Information Medications Medication SIG (Take, Route, Frequency, Duration) Notes Start Date End Date Status Estradiol 0.05 MG/24HR 1 patch to skin T ransdermal Two times a Week; Duration: 90 days 01/07/2024 Active Prometrium 200 MG 1 capsule at bedtime Orally every day for 12 days every month; Duration: 90 days 01/07/2024 Active Multivitamin Adult - Orally Active Estradiol 0.0375 MG/24HR 1 patch to skin Transdermal TWICE WEEKLY; Duration: 90 days 07/11/2023 Active Prometrium 200 MG 1 capsule at bedtime Orally ONCE A DAY FROM DAYS 1 TO 12 Q MONTH; Duration: 90 days 07/11/2023 Active Estradiol 0.05 MG/24HR 1 patch to skin T ransdermal Two times a Week; Duration: 90 days 10/04/2023 Active Social History Tobacco [...] perimenopausal disorder (N95.9) Active confirmed Problem Menopause ([id number]) Menopausal and female climacteric states (N95.1) Active confirmed Problem Gynecological examination normal ([id number]) Routine gynecological examination (V72.31) Active confirmed Vital Signs Temperature 97.3 degrees Fahrenheit 01/07/2024 Blood pressure diastolic 84 mm Hg 01/07/2024 Height 64.75 in 01/07/2024 Blood pressure systolic 130 mm Hg 01/07/2024 Weight 187 lbs 01/07/2024 BMI 31.36 kg/m2 01/07/2024 Encounters Encounter Location Date Provider Diagnosis [address] [phone] 01/07/2024 Elida Li Encounter for gynecological examination [...] Provider Name:Elida alarcon, 01/09/2025 08:50:00 AM, [address], [address], [place], [address], Insurance Providers Payer Name Payer Address Payer Phone Subscriber Number Group Number Insured Name Patient Relationship to Insured Coverage Start Date Coverage End Date [employer] [address] [place] [address] [id number] ROSSY BUTTS Self - patient is the [...]
--- OUTSIDE RECORDS SUMMARY | 2024-12-30 11:33 | XMS_ITS | Encounter Summary ---
Author Organization [facility] Address [address] [place] [address] Care Team Providers Care Colloid Mill Operator Name Role Phone Liz Manning MD Primary Care Provider [phone] Encounter Details Date Type Department Care Team (Late st Contact Info) Description 10/31/2024 Scanned Document [address] [place] [id number] Provider, Generic Social History Tobacco Use [...] on filedocumented in this encounter Care Teams Colloid Mill Operator Relationship Specialty Start Date End Date Liz Manning MD [address] [place] [address] AIMEE Jaimes [phone] PCP - General Internal Medicine 10/16/24 documented as of this encounter
--- OUTSIDE RECORDS SUMMARY | 2024-12-30 11:33 | XMS_ITS ---
[...] days 2 through 5. 10/31/2024 active Nebulizer [facility] Please provide nebulizer as covered by patient [...] on Source Bacterial pneumonia active [facility] Mild persistent asthma with exacerbation active EncounterDiagnosisAct [facility] Chest congestion active EncounterDiagnosisAct [facility] Encounters Encounter Type Encounter Reason Primary Diagnosis Location Date Ambulatory [facility] 10/31/2024 Ambulatory [facility] 10/31/2024 Ambulatory [facility] 10/16/2024 Care Team Organization Name Specialty Phone Email Start Date End Da te [facility] Liz Manning Primary Care 10/18/2024 11/30/19 [facility] 10/16/2024 [facility] Liz Manning Primary Care 10/16/2024
== END 2024-12-30 11:05 | disposition home or self-care (01) ==
LOC: HO.HMCFM 10:37
PROVIDERS: PCP Internal Medicine; Visit Provider Internal Medicine
DX: Z00.00 Encounter for general adult medical examination without abnormal findings (principal); E78.01 Familial hypercholesterolemia; M54.12 Radiculopathy, cervical region; J45.41 Moderate persistent asthma with (acute) exacerbation

== ENCOUNTER → 2024-12-30 10:34 | Outpatient (BNVA) | payer OTHER, SELFPAY | PROVIDERS: PCP Internal Medicine; Visit Provider Internal Medicine | DX: Z00.00 Encounter for general adult medical examination without abnormal findings (principal); E78.01 Familial hypercholesterolemia; M54.12 Radiculopathy, cervical region; J45.41 Moderate persistent asthma with (acute) exacerbation; E78.5 Hyperlipidemia, unspecified | CPT/HCPCS: 96160 ==

== ENCOUNTER 2025-01-28 09:21 | Outpatient (AMB) | payer OTHER, SELFPAY ==
--- NOTE | 2025-01-28 09:25 | A.OFFVIS_ITS ---
Vital Signs 01/28/25 09:26 Height 5 ft 3 in Weight 189 lb BMI 33.5 BP 134/68 Blood Pressure Location Lt brachial Position Sitting Pulse 64 Pulse Source Pulse Oximeter Pulse Oximetry (%) 99 Oxygen Delivery Method Room Air Intake Visit Reasons: Wheezing Assistant Community Director Required: No Road Production General Manager: Road Production General Manager offered & declined Accompanied by: Self / Same As Patient Allergies No Known Allergies Allergy (Verified 01/28/25 09:29) Medication List - Last Reconciled 01/28/25 by Molly Cardona LPN albuterol sulfate 90 mcg/actuation 2 puffs inhalation Q6H PRN estradiol 1 patch transdermal 2XW progesterone micronized mg PO Pulmicort Flexhaler 180 mcg/actuation (budesonide) 1 inh inhalation DAILY NS HPI HPI Wheezing: Details: Tessie is a pleasant 54 year old, former less than 5 pack year smoker, with underlying HLD and h/o melanoma followed by dermatology. She was referred by PCP for pulmonary evaluation. The patient presents with respiratory symptoms, including wheezing and shortness of breath, potentially related to exercise and seasonal allergies. The patient reports a history of exercise-induced bronchospasm, characterized by wheezing lasting approximately six hours after running, which has been present since childhood but remains undiagnosed. She uses albuterol as needed, primarily when running, and finds it helpful in managing symptoms. She also uses Pulmicort one inhalation QD in the summer otherwise uses albuterol MDI infrequently throughout the rest of the year. The patient also experiences seasonal allergic rhinitis, with symptoms including itchy eyes, sneezing, and wheezing, particularly during the spring. In September, she experienced a severe episode of respiratory distress, initially suspected to be walking pneumonia, which improved with steroid treatment but recurred upon cessation. At that time she did report she was moving therefore cleaning with likely exposure to significant dust which may have triggered respiratory symptoms. She has since been taking Zyrtec daily to manage her symptoms. Denies recent allergy testing. She denies any occupational exposures. Denies any pertinent family history. The patient has a history of melanoma, which has been monitored by dermatology for the past 20 years without recurrence. 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 Current occupational exposures/hazards: No Cognitive needs: No Hearing needs: No Vision needs: No Review of Systems Const Denies chills, Denies excessive sweating, Denies fever(s), Denies headache(s) and Denies night sweats Eyes Denies dry eyes, Denies irritation and Denies itchy eyes ENT Reports Normal hearing present, Denies headache(s), Denies nasal congestion, Denies nasal discharge, Denies post nasal drip and Denies sore throat Card Denies chest pain, Denies chest pain at rest, Denies chest pain with activity, Denies claudication, Denies leg edema, Denies dyspnea, Denies dyspnea on exertion, Denies orthopnea and Denies paroxysmal nocturnal dyspnea Resp Denies chest congestion, Denies cough, Denies excessive phlegm production, Denies pain on inspiration, Denies pain with cough, Denies dyspnea, Denies dyspnea on exertion, Denies stridor and Denies wheezing Musc Denies myalgias Neuro Reports Normal hearing present and Denies headache(s) Endo Denies excessive sweating Augie/Lymph Denies lymphadenopathy Aller/Immun Denies itchy eyes, Denies seasonal rhinorrhea and Denies wheezing Physical Exam Vital Signs: Last Vital Signs Pulse 64 01/28/25 09:26 BP 134/68 01/28/25 09:26 Pulse Ox 99 01/28/25 09:26 Oxygen Delivery Method Room Air 01/28/25 09:26 BMI result Body Mass Index 33.5 Const General: cooperative, healthy appearing, comfortable, no acute distress, well developed and alert Nutritional Appearance: obese Orientation/consciousness: patient oriented x3 Limitations: no limitations HEENT Head: Yes normal to inspection, Yes normocephalic and Yes atraumatic Ears: hearing grossly normal bilaterally and external ears normal Eyes General: appearance normal, both eyes and all related structures Eyelids: Yes eyelids normal Sclerae: sclerae normal EOM: EOMs intact bilaterally Neck Neck: Yes normal visual inspection and Yes no lymphadenopathy Lymphatic: no lymphadenopathy noted Chest Chest palpation & inspection: normal inspection of the chest Resp Effort & Inspection: normal respiratory effort, able to speak in complete sentences, no audible wheezes, no cough, no stridor, not tachypneic, no tripod positioning and no use of accessory muscles Auscultation: clear to auscultation bilaterally Cardio Jugular venous distension: no JVD Rate: regular rate Rhythm: regular rhythm Skin Other: warm, dry General skin exam: no rashes or lesions noted Neuro General: patient oriented x3 Cranial nerves: Yes Normal hearing present Cognition (Neuro): normal cognition Gait exam (Neuro): Normal gait present Extrem General: Yes normal to inspection, Yes capillary refill normal, Yes no clubbing, cyanosis or edema and Yes no pedal edema Psych Appearance: grossly normal and well kempt Speech and movement: Normal speech and movement present and Clear speech present Affect: normal affect Attitude: cooperative Thought process: Normal thought process present Thought content: Normal thought content present Insight: Good insight present (Psych) Judgement: Good judgement present (Psych) Assessment & Plan Assessment & Plan (1) Reactive airway disease: Code(s): J45.909 - Unspecified asthma, uncomplicated Category: Medical Qualifiers: Asthma severity: moderate Asthma persistence: persistent Asthma compli cation type: with acute exacerbation Qualified Code(s): J45.41 - Moderate persistent asthma with (acute) exacerbation (2) Wheezing: Code(s): R06.2 - Wheezing Category: Medical (3) Environmental allergies: Code(s): Z91.09 - Other allergy status, other than to drugs and biological substances Category: Medical Plan The plan includes scheduling a pulmonary function test to assess lung function and response to bronchodilators, which may confirm a diagnosis of asthma. Allergy testing will be conducted to identify potential environmental triggers, with the possibility of adjusting the patient's environment or medication regimen based on results. The patient is advised to continue using albuterol as needed and to consider increasing Pulmicort usage to twice daily if symptoms worsen or become more frequent. Follow-up is recommended in eight weeks to review test results and adjust the management plan as necessary. All questions were answered and patient is in agreement of plan. Orders: Orders Complete Blood Count Auto Diff Today Z91.09 - Other allergy status, other than to drugs and biological substances Resp Allergy Profile Region I Today Z91.09 - Other allergy status, other than to drugs and biological substances Immunoglobulin E Today Z91.09 - Other allergy status, other than to drugs and biological substances PFT pulmonary function test Today J45.41 - Moderate persistent asthma with (acute) exacerbation Coding Level of Care Code New Pt Level 4 (58711) Diagnoses Moderate persistent reactive airway disease with acute exacerbation J45.41 Asthma severity: moderate Asthma persistence: persistent Asthma complication type: with acute exacerbation Wheezing R06.2 Environmental allergies Z91.09
[2025-01-28 09:26] VITALS: BP 134/68; PULSE 64; O2SAT 99; BMI 33.5
--- OUTSIDE RECORDS SUMMARY | 2025-01-28 09:42 | XMS_ITS | Encounter Summary ---
Author Organization [facility] Address [address] [place] [address] Care Team Providers Care Director Patient Accounting Name Role Phone Liz Manning MD Primary Care Provider [phone] Encounter Details Date Type Department Care Team (Late st Contact Info) Description 10/31/2024 Scanned Document [address] [place] [phone] Provider, Generic Social History Tobacco Use [...] on filedocumented in this encounter Care Teams Director Patient Accounting Relationship Specialty Start Date End Date Liz Manning MD [address] [place] [address] AIMEE Jaimes [phone] PCP - General Internal Medicine 10/16/24 documented as of this encounter
--- OUTSIDE RECORDS SUMMARY | 2025-01-28 09:42 | XMS_ITS | Patient Health Record ---
Author Organization [employer] [facility] Address [address] [place] [address] Care Team Providers Care Dietary Aide Teacher Name Role Phone SHANIQUE ASKEW MD Primary Care Provider Elida Noland [phone] Allergies No Known Allergies Results Component Value Reference Range Notes Urinalysis Reviewed date:01/09/2025 09:05:06 AM Interpretation: Performing Lab: Notes/Report: PH 5.0 PROTEIN Neg GLUCOSE Neg BLOOD Neg [id number] IGP No Culture 30 Plus Reviewed date:01/13/2025 07:20:40 PM Interpretation: Performing Lab:[facility], [address] [place] [address], Phone - [phone], Director - [facility] Notes/Report: Clinical Information:Vaginal/Cervical, LMP: Men o 2022 [id number] Dates / Results....09/12/21 NIL, Neg HPV Other..............Post Menopausal No. of containers..01 ThinPrep Vial DIAGNOSIS: NEGATIVE FOR INTRAEPITHELIAL LESION OR MALIGNANCY. REACTIVE CELLULAR CHANGES AND/OR REPAIR ARE PRESENT. Specimen adequacy: Satisfactory for evaluation. Endocervical and/or squamous metaplastic cells (endocervical component) are present. Clinician provided ICD10: Z01.419 Z11.51 Performed by: Vance Izaguirre ytologist (ASCP) Electronically signed by: Nolan Figueredo MD, Pathologist . . Note: The Pap smear is a screening test designed to aid in the detection of premalignant and malignant conditions of the uterine cervix. It is not a diagnostic procedure and should not be used as the sole means of detecting cervical cancer. Both false-positive and false-negative reports do occur. . Test Methodology: This liquid based ThinPrep(R) pap test was screened with the use of an image guided system. HPV Aptima Negative Negative This nucleic acid amplification test detects fourteen high-risk HPV types (16,18,31,33,35,39,45,51,52,56 ,58,59,66,68) without differentiation. HPV Genotype Reflex Criteria not met, HPV Genotype not performed. PDF Report Reviewed date:01/13/2025 07:20:29 PM Interpretation: Performing Lab:[facility], [address] [place] [address], Phone - [phone], Director - [facility] Notes/Report: Clinical Information:Vaginal/Cervical, LMP: Men o 2022 [id number] Dates / Results....09/12/21 NIL, Neg HPV Other..............Post Menopausal No. of containers..01 ThinPrep Vial Reason For Referral No Information Medications Medication SIG (Take, Route, Fr equency, Duration) Notes Start Date End Date Status Prometrium 200 MG 1 capsule at bedtime Orally EVERY NIGHT; Duration: 90 days 01/09/2025 Active ZyrTEC Allergy Activ e Estradiol 0.05 MG/24HR 1 patch to skin T ransdermal Two times a Week; Duration: 90 days 01/09/2025 Active Multivitamin Adult - Orally Active Estradiol 0.05 MG/24HR 1 patch to skin T ransdermal Two times a Week; Duration: 90 days 01/07/2024 Active Prometrium 200 MG 1 capsule at bedtime Orally every day for 12 days every month; Duration: 90 days 01/07/2024 Active Estradiol 0.05 MG/24HR 1 patch to skin T ransdermal Two times a Week; Duration: 90 days 01/12/2025 Active Social History Tobacco Use: Social History Observation Description Date Details (start date - stop date) Former Smoker NA - NA AUDIT-C (Standard) Question Answer Notes Did you have a drink contain ing alcohol in the past year? Yes How often did you have a dri nk containing alcohol in the past year? 2 to 4 times a month (2 points) How many drinks did you have on a typical day when you were drinking in the past year? 1 or 2 drinks (0 point) How often did you have six o r more drinks on one occasion in the past year? Never (0 point) Points 2 Interpretation Negative Tobacco Control (Standard) Question Answer Notes Tobacco use: Former smoker How long has it been since you last smoked? Grea ter than 10 years Problems Problem Type SNOMED Code ICD Code Onset Dates Problem Status W/U Status Risk Notes Problem Unspecified menopausal and perimenopausal disorder (N95.9) Active confirmed Problem Menopause (612038602) Menopausal and female climacteric states (N95.1) Active confirmed Problem Gynecological examination normal (037922575368791) Routine gynecological examination (V72.31) Active confirmed Vital Signs Temperature 97.7 degrees Fahrenheit 01/09/2025 Blood pressure diastolic 86 mm Hg 01/09/2025 Height 64.75 in 01/09/2025 Blood pressure systolic 128 mm Hg 01/09/2025 Weight 189 lbs 01/09/2025 BMI 31.69 kg/m2 01/09/2025 Encounters Encounter Location Date Provider Diagnosis [place] [address] [address] 01/09/2025 Elida Li Encounter for gynecological examination (general) (routine) without abnormal findings Z01.419 ; Encounter for screening for human papillomavirus (HPV) Z11.51 ; Encounter for screening mammogram for malignant neoplasm of breast Z12.31 ; Hormone replacement therapy Z79.890 and Dense breasts, unspecified R92.30 [address] [address] 01/12/2025 [facility]ida Li [address] [address] 01/22/2025 Elida Li Hormone replacement therapy Z79.890 Assessments Encounter Date Diagnosis (ICD Code) Assessment Notes Treatment Notes Treatment Clinical Notes Section Notes 01/09/2025 Encounter for gynecological examination (general) (routine) without abnormal findings (ICD-10 - Z01.419) PAP TEST WAS TAKEN. 01/22/2025 Hormone replacement therapy (ICD-10 - Z79.890) 01/09/2025 Encounter for screening for human papillomavirus (HPV) (ICD-10 - Z11.51) HPV TYPING WAS ADDED TO HER PAP TEST. 01/09/2025 Encounter for screening mammogram for malignant neoplasm of breast (ICD-10 - Z12.31) REGULAR MAMMOGRAMS AND SBE'S WERE RECOMMENDED. 01/09/2025 Hormone replacement therapy (ICD-10 - Z79.890) DISCUSSED BENEFITS AND RISKS OF HRT. SHE HAS NO CONTRAINDICATI ONS. WILL CHANGE PROMETRIUM INTAKE TO ONCE DAILY INSTEAD OF JUST 12 DAYS. SHE SHOULD NOT BLEED. SHE AGREED. 01/09/2025 Dense breasts, unspecified (ICD-10 - R92.30) DISCUSSED DENSE BREASTS ON MAMMOGRAM AND ITS IMPLICATIONS. 3D MAMMOGRAMS WERE RECOMMENDED. Plan Of Treatment Pending Test Test Name Order Date MAMMOGRAM, SCREENING 03/09/2015 Urinalysis 09/12/2021 ESTRADIOL 04/30/2023 FSH 04/30/2023 LH 04/30/2023 THIN PREP,HPV,RAFAL IF HPV+ (>29YR)(SCRN) 04/19/2017 MM Digital Mammo Screening 09/12/2021 MM Digital Mammo Screening 12/28/2022 MM Digital Mammo Screening 01/07/2024 MM Digital Mammo Screening 01/09/2025 Next Appt Details Provider Name:Elida Rothman agnes, 01/15/2026 08:50:00 AM, [address], [address], [place], [address], Insurance Providers Payer Name Payer Address Payer Phone Subscriber Number Group Number Insured Name Patient Relationship to Insured Coverage Start Date Coverage End Date [employer] [address] [place] [address] [id number] ROSSY BUTTS Self - patient is the insured Medical (General) History Medical History History ICD Code Inconclusive mammogram R92.2 Melanoma in situ, unspecified D03.9 Unspecified menopausal and perimenopausa l disorder N95.9 Menopausal and female climacteric states N95.1 Hormone replacement therapy Z79.890 Mammographic heterogeneous density, bila teral breasts R92.333 Dense breasts, unspecified R92.30 Surgical History Surgery Date(Month/Year) Left Arm Skin Excision Left Hand Surgery Left Foot Surgery Right Breast Biopsy 05/15/16 Hospitalization History Reason Date(Month/Year) See Surgical Hx
== END 2025-01-28 09:49 | disposition home or self-care (01) ==
LOC: HO.HPSW 09:22
PROVIDERS: PCP Internal Medicine; Referring Provider Internal Medicine; Visit Provider Nurse Practitioner Family
DX: J45.41 Moderate persistent asthma with (acute) exacerbation (principal); Z91.09 Other allergy status, other than to drugs and biological substances
CPT/HCPCS: 99204

== ENCOUNTER 2025-01-28 09:51 | Outpatient (REF) | payer OTHER, SELFPAY ==
[2025-01-28 11:31] LABS: MANUAL DIFF FLAG NO
[2025-01-28 11:40] LABS: Hematocrit 41.8 % (37.0-47.0); Hemoglobin 13.8 g/dl (12.0-16.0); Imm Gran Abs Auto 0.02 X10*3/uL (0.00-0.03); Imm Gran Pct Auto 0.3 % (0.0-0.4); Lymphocytes Absolute Auto 2.4 X10*3/uL (1.2-4.9); Mean Corpuscular HGB Conc 33.0 g/dl (31.0-35.0); Mean Corpuscular Hemoglobin 31.9 pg (27.0-33.0); Mean Corpuscular Volume 96.5 fL (80.0-98.0); NRBC Abs Auto 0.000 X10*3/uL (0.0-0.012); NRBC Pct Auto 0.0 /100WBC (0.0-0.2); Platelet Count 275 X10*3/uL (160-400); Red Blood Count 4.33 X10*6/uL (4.20-5.50); White Blood Count 6.5 X10*3/uL (4.8-10.8)
[2025-01-30 02:13] LABS: Class Alternaria alternata 0; Class Aspergillus fumigatus 0; Class Bermuda Grass 0; Class Birch 0; Class Cat Dander 0; Class Cladosporium herbarum 0; Class Cockroach 0; Class Common Ragweed 0; Class Cottonwood 0; Class Derm. pterony 0; Class Dermatophagoides farinae 0; Class Dog Dander 0; Class Elm 0; Class Maple Box Elder 0; Class Mountain Cedar 0; Class Mouse Urine Protein 0; Class Mugwort 0; Class Oak 0; Class Penicillium crysogenum 0; Class Rough Pigweed 0; Class Sheep Sorrel 0; Class Sycamore 0; Class Timothy Grass 0; Class Walnut Tree 0; Class White Ash 0; Class White Mulberry 0; D002 - IgE D farinae <0.10 kU/L; E001 - IgE Cat Dander <0.10 kU/L; E005 - IgE Dog Dander <0.10 kU/L; G006 - IgE Timothy Grass <0.10 kU/L; I006-IgE Cockroach, German <0.10 kU/L; M002 - IgE Cladosporium herbar <0.10 kU/L; M003 - IgE Aspergillus fumigat <0.10 kU/L; M006 - IgE Alternaria alternat <0.10 kU/L; T001 IgE Maple/Box Elder <0.10 kU/L; T006 - IgE Cedar, Mountain <0.10 kU/L; T007 - IgE Oak, White <0.10 kU/L; T008 IgE Elm, American <0.10 kU/L; T010 - IgE Walnut <0.10 kU/L; T011 - IgE Maple Leaf Sycamore <0.10 kU/L; T014 - IgE Cottonwood <0.10 kU/L; T015 - IgE Ash, White <0.10 kU/L; T070 - IgE White Mulberry <0.10 kU/L; W001 - IgE Ragweed, Short <0.10 kU/L; W006 - IgE Mugwort <0.10 kU/L; W014 IgE Pigweed, Common <0.10 kU/L; W018 IgE Sheep Sorrel <0.10 kU/L
== END 2025-01-28 09:52 | disposition home or self-care (01) ==
LOC: HO.WFDLDS 09:51
PROVIDERS: Visit Provider Nurse Practitioner Family
DX: J45.41 Moderate persistent asthma with (acute) exacerbation (principal); Z91.09 Other allergy status, other than to drugs and biological substances
CPT/HCPCS: 36415; 82785; 85025; 86003